=== PATIENT | female | born 1940 | race African-American/Black ===

== ENCOUNTER 2016-05-03 12:50 | Observation (INO) | payer MEDICARE, MEDICAID ==
[~2016-05-03] VITALS: Ht 160 cm; Wt 88.3 kg
[2016-05-03] MEDS ORDERED: hydroCHLOROthiazide 25 MG TAB As Ordered ONE (14:02)
[2016-05-03 14:13] LABS: BASO % 0.2 % (0.0-1.0); EOS % 0.8 % (0.0-3.0); LARGE UNSTAINED CELL # 0.2 K/mm3 (0.0-0.4); LARGE UNSTAINED CELL % 3.5 % (0.0-4.0); LYMPH # 1.1 K/mm3 (1.5-4.5); LYMPH % 21.3 % (24.0-44.0); MEAN CORPUSCULAR HEMOGLOBIN 30.2 pg (27.0-33.0); MEAN CORPUSCULAR HGB CONC 34.1 g/dl (32.0-36.5); MEAN CORPUSCULAR VOLUME 88.4 fl (80.0-96.0); MONO # 0.4 K/mm3 (0.0-0.8); NEUTROPHILS # 3.4 K/mm3 (1.8-7.7); NEUTROPHILS % 67.2 % (36.0-66.0); PLATELET COUNT, AUTOMATED 239 k/mm3 (150-450); RED CELL DISTRIBUTION WIDTH 12.4 % (11.5-14.5)
[2016-05-03] MEDS ORDERED: ENALAPRIL MALEATE 5 MG TAB PO ONE (14:30)
[2016-05-03 14:31] LABS: ANION GAP 8 MEQ/L (8-16); BLOOD UREA NITROGEN 9 MG/DL (7-18); CALCIUM LEVEL 9.3 MG/DL (8.8-10.2); CARBON DIOXIDE LEVEL 29 MEQ/L (21-32); CHLORIDE LEVEL 95 MEQ/L (98-107); GLOMERULAR FILTRATION RATE > 60.0 (>39); GLUCOSE, FASTING 116 MG/DL (83-110); POTASSIUM SERUM 4.1 MEQ/L (3.5-5.1); SODIUM LEVEL 132 MEQ/L (136-145)
[2016-05-03] MEDS ORDERED: NITROGLYCERIN 2% OINT 1 GM *U/D* PKT As Ordered ONE (15:03)
--- NOTE | 2016-05-03 15:10 | REP ---
PORTABLE CHEST: No comparisons. AP portable view of the chest is performed. There is cardiomegaly and pulmonary venous hypertension. No acute infiltrate is seen. Mediastinal silhouette appears unremarkable. The visualized osseous structures appear intact. IMPRESSION: Cardiomegaly and pulmonary venous hypertension. No acute infiltrate. Signed by Bijan Peacock MD 05/04/2016 09:47 A
[2016-05-03] MEDS ORDERED: GLUCOSE 4 GM CHEW TABLET PO PRN (16:00)
[2016-05-03] MEDS ORDERED: GLUCAGON FOR INJ 1 MG VIAL (J1610) SC PRN (16:00)
[2016-05-03] MEDS ORDERED: DEXTROSE 50% 50 ML SYRINGE IV PRN (16:00)
[2016-05-03] MEDS ORDERED: GABA300C3 PO (16:05)
[2016-05-03] MEDS ORDERED: GABA600T PO (16:05)
[2016-05-03] MEDS ORDERED: LUBR1DRO OU (16:08)
[2016-05-03] MEDS ORDERED: ASPI1TAB PO (16:08)
[2016-05-03] MEDS ORDERED: JANU100T PO (16:08)
[2016-05-03] MEDS ORDERED: BYST20TA2 PO (16:08)
[2016-05-03] MEDS ORDERED: GLIP5TAB8 PO (16:08)
[2016-05-03] MEDS ORDERED: TERA10CA3 PO (16:08)
[2016-05-03] MEDS ORDERED: VITMTA PO (16:08)
[2016-05-03] MEDS ORDERED: ENAL10TA10 PO (16:08)
--- NOTE | 2016-05-03 16:33 | HPE ---
DATE OF ADMISSION: 05/03/2016 PRIMARY CARE PROVIDER: Dr. Mariza Galloway in [facility], phone number [phone] MEDICAL ASSISTANT INTERNAL MEDICINE: Dr. Christopher, contact information [phone]. HISTORY OF PRESENT ILLNESS: This patient is a 76-year-old female with a past medical history significant for hypertension, non-insulin dependent diabetes, presented to [facility] on 05/03/2016, for 1 week of dizziness and weakness. When patient measured her blood pressure at home, her blood pressure has been consistently high. Patient was seen by seismograph supervisor and primary care provider. Blood pressure medication was fairly controlled previously, however since 6 months ago there are some medication adjustments that she cannot recall the details of and after adjustment patient's blood pressure has been worsening. Patient denies any vision or auditory disturbance, but she complains about severe headache all over her head and the sensation is heavy and the headache usually occurs when she has elevated blood pressures. Patient also feels she can feel her heart pumping but she does not feel her heart is beating fast. Denied any chest pain. Denied any problem with urination. Denied any numbness or tingling. Denied any shortness of breath. When patient arrived in the emergency room, patient had a blood pressure of 241/106, pulse of 50. An EKG was performed and showed some ST depression. Troponin was obtained which showed 0.27. Hospitalist team was called for admission. ALLERGIES: No known drug allergies. HOME MEDICATIONS: - gabapentin - glipizide - enalapril/hydrochlorothiazide - terazosin - aspirin - Bystolic PAST MEDICAL HISTORY: 1. Hypertension. 2. Diabetes. PAST SURGICAL HISTORY: None. SOCIAL HISTORY: Denies smoking. Denies any alcohol use. Denies any recreational drug use. Patient is a FULL CODE. REVIEW OF SYSTEMS: GENERAL: No fever, no chills. HEENT: No vision changes, no auditory changes. CARDIOVASCULAR: Persistent elevated blood pressure started 6 months ago and has been worse in the last week, also accompanied with headache every time when she had an elevated blood pressure. RESPIRATORY: No shortness of breath, no cough. GASTROINTESTINAL (GI): No nausea, no vomiting, no abdominal pain. MUSCULOSKELETAL: No muscle pain or joint pain. OBJECTIVE: VITAL SIGNS: Blood pressure 241/102, pulse 50, respirations 18, temperature 98.1, pulse oximetry 98% in room air. Body weight is 88.63 kg, body height is 160 cm. GENERAL: Fatigued, no sign of acute distress, alert and oriented times three. HEENT: Normocephalic, atraumatic. Extraocular motors grossly intact. CARDIOVASCULAR: Bradycardia with heart rate wandering around 50. Positive S2, S2. LUNGS: Clear to auscultation bilaterally. ABDOMEN: Soft, nontender, nondistended. Bowel sounds present. No rebound, no guarding. EXTREMITIES: No edema, no sign of cyanosis. NEUROLOGIC: Muscle strength 5/5. Sensation to fine touch grossly intact. LABORATORY DATA: WBC 5, hemoglobin 14.1, hematocrit 41.2, platelet count 239. Sodium 132, potassium 4.1, chloride 95, carbon dioxide 29, BUN 9, creatinine 0.8, GFR greater than 60, fasting glucose 116, calcium 9.3, total CK 140, troponin I is 0.27. Chest xray shows cardiomegaly with pulmonary venous hypertension, no acute infiltrate. ASSESSMENT AND PLAN: 1. Hypertensive emergency. Patient was admitted to the progressive care unit (PCU) under observation status. Currently, due to the bradycardia, blood pressure medication regimen is limited. Will increase Enalapril dose and increase the terazosin dose. Continue on hydrochlorothiazide and add hydralazine. Patient's blood pressure will be measured every 4 hours. 2. Elevated troponin with ST depression. We are not sure whether the ST depression is a new finding or not. Patient is from [facility]. We do not have any previous records. Will request records from the patient's primary care provider (PCP) and seismograph supervisor which are Dr. Galloway and Dr. Christopher. I have contacted our seismograph supervisor. He recommends admitting the patient and continue with blood pressure management and follow with repeated EKG and troponin. If there is any continued increase of troponin and there is worsening EKG changes, Dr. Tello will be assisting with transfer. 3. Non-insulin dependent diabetes. Will be on sliding scale and consistent carbohydrate diet. We will also follow with A1c. 4. Deep venous thrombosis (DVT) prophylaxis. Patient will be on heparin.
[2016-05-03] MEDS: HumaLOG INSULIN (NovoLOG) PER UNIT SC SCH ×2 (17:30→21:00)
[2016-05-03 17:56] LABS: CHOLESTEROL LEVEL 117 MG/DL (<200); TRIGLYCERIDES LEVEL 66 MG/DL (<150)
--- NOTE | 2016-05-03 18:20 | ECGEPIP ---
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
[2016-05-03] MEDS ORDERED: HEPARIN SOD (PORCINE) 5000 UNITS/ML VIAL As Ordered ONE (20:42)
[2016-05-03] MEDS ORDERED: GABAPENTIN 100 MG CAP As Ordered ONE (20:42)
[2016-05-03] MEDS: GABAPENTIN 300 MG CAP PO SCH (20:50)
[2016-05-03] MEDS: HEPARIN SOD (PORCINE) 5000 UNITS/ML VIAL SC SCH (20:50)
[2016-05-03] MEDS ORDERED: TERAZOSIN 1 MG CAP PO SCH (21:00)
[2016-05-03] MEDS: **hydrALAZINE HCL** 25 MG TAB PO SCH (22:00)
[2016-05-04] VITALS (9 sets, daily range): BP systolic 139–202; BP diastolic 60–81
[2016-05-04] MEDS ORDERED: **hydrALAZINE HCL** 25 MG TAB As Ordered ONE ×2 (05:56→10:32)
[2016-05-04] MEDS ORDERED: HEPARIN SOD (PORCINE) 5000 UNITS/ML VIAL As Ordered ONE (05:56)
[2016-05-04] MEDS: HEPARIN SOD (PORCINE) 5000 UNITS/ML VIAL SC SCH ×3 (06:02→21:04)
[2016-05-04] MEDS: **hydrALAZINE HCL** 25 MG TAB PO SCH (06:02)
[2016-05-04 08:07] LABS: BASO % 0.3 % (0.0-1.0); EOS # 0.1 K/mm3 (0.0-0.50); EOS % 2.2 % (0.0-3.0); LARGE UNSTAINED CELL # 0.1 K/mm3 (0.0-0.4); LARGE UNSTAINED CELL % 2.3 % (0.0-4.0); LYMPH # 1.4 K/mm3 (1.5-4.5); LYMPH % 25.4 % (24.0-44.0); MEAN CORPUSCULAR HEMOGLOBIN 30.1 pg (27.0-33.0); MEAN CORPUSCULAR HGB CONC 33.4 g/dl (32.0-36.5); MONO # 0.4 K/mm3 (0.0-0.8); MONO % 8.6 % (0.0-5.0); NEUTROPHILS % 61.2 % (36.0-66.0); PLATELET COUNT, AUTOMATED 240 k/mm3 (150-450); RED CELL DISTRIBUTION WIDTH 12.9 % (11.5-14.5); WHITE BLOOD COUNT 4.9 K/mm3 (4.0-10.0)
[2016-05-04] MEDS ORDERED: HumaLOG INSULIN (NovoLOG) PER UNIT As Ordered ONE (08:17)
[2016-05-04] MEDS ORDERED: ENALAPRIL MALEATE 10 MG TAB As Ordered ONE (08:19)
[2016-05-04] MEDS ORDERED: ASPIRIN 81 MG CHEW TABLET As Ordered ONE (08:19)
[2016-05-04] MEDS ORDERED: ACETAMINOPHEN TAB 650MG DOSE (2X325MG) As Ordered ONE (08:20)
[2016-05-04] MEDS ORDERED: hydroCHLOROthiazide 25 MG TAB As Ordered ONE (08:20)
[2016-05-04] MEDS: hydroCHLOROthiazide 25 MG TAB PO SCH ×2 (08:26→18:23)
[2016-05-04] MEDS: ASPIRIN 81 MG CHEW TABLET PO SCH (08:26)
[2016-05-04] MEDS: ENALAPRIL MALEATE 10 MG TAB PO SCH ×2 (08:27→18:23)
[2016-05-04] MEDS: GABAPENTIN 300 MG CAP PO SCH ×2 (08:27→21:03)
[2016-05-04] MEDS: HumaLOG INSULIN (NovoLOG) PER UNIT SC SCH ×4 (08:28→21:04)
[2016-05-04] MEDS: ACETAMINOPHEN TAB 650MG DOSE (2X325MG) PO PRN ×2 (08:29→18:23)
[2016-05-04 08:51] LABS: ALBUMIN 3.6 GM/DL (3.2-5.2); ALBUMIN/GLOBULIN RATIO 0.97 (1.00-1.93); ALKALINE PHOSPHATASE 57 U/L (45-117); ALT/SGPT 21 U/L (12-78); ANION GAP 8 MEQ/L (8-16); AST/SGOT 20 U/L (15-37); BILIRUBIN,TOTAL 0.3 MG/DL (0.2-1.0); BLOOD UREA NITROGEN 13 MG/DL (7-18); CALCIUM LEVEL 9.3 MG/DL (8.8-10.2); CARBON DIOXIDE LEVEL 32 MEQ/L (21-32); CHLORIDE LEVEL 92 MEQ/L (98-107); CREATININE FOR GFR 0.92 MG/DL (0.55-1.02); GLOMERULAR FILTRATION RATE > 60.0 (>39); GLUCOSE, FASTING 149 MG/DL (83-110); MAGNESIUM LEVEL 1.7 MG/DL (1.8-2.4); POTASSIUM SERUM 3.7 MEQ/L (3.5-5.1); SODIUM LEVEL 132 MEQ/L (136-145); TOTAL PROTEIN 7.3 GM/DL (6.4-8.2)
[2016-05-04] MEDS ORDERED: **hydrALAZINE HCL** 25 MG TAB PO ONE (10:30)
[2016-05-04 13:04] LABS: FREE T4 1.3 NG/DL (0.76-1.46)
[2016-05-04 13:31] LABS: CORTISOL BASELINE 19.6 UG/DL (4.3-22.4)
[2016-05-04] MEDS: **hydrALAZINE** 50 MG TAB PO SCH ×2 (14:00→21:04)
--- NOTE | 2016-05-04 15:11 | IPNPDOC ---
Text Note Date of Service The patient was seen on 05/04/16. NOTE Subjective: Patient is a 76 year old female with a PMHx of HTN, NIDDM2, who presented to the ER with complaints o fdizziness an weakness at home. She was found to be 241 /106 with a HR of 50 in the ER. As an outpatient she notes that her BP is typically SBPs of 170-190s. She denied chest pain, but initial EKG showed ST segment depressions and a positive troponin. She was admitted for hypertensive emergency. Patient was seen and examined at the bedside. Currently she denies any symptoms and her BP has been better controlled. Objective: Vitals (See below) General: Lying in bed, no acute distress, comfortable, AAOx3 HEENT: NC, AT, CVS: RRR, +S1S2 Lungs: Fair air entry b/l, -w/r/r Abdomen: Soft, ND, NT, +BSx4 Extremities: +PPx4, -edema, - calf tenderness Neuro: 5/5 muscle strength at upper / lower extremities bilaterally Assessment and plan: 1. Hypertensive emergency - possibly 2/2 non-compliance - Reports that as an outpatient her BP is typically SBPs of 170s-190s - Clinically she has no symptoms at this time - Physical is un-revealing - EKG initially showed ST segment depressions, troponin trend has been stable at 0.28 - Will check for secondary causes of hypertension - Will increase dose of Hydralazine to 50 QID, and Terazosin to 5mg QHS, c/w Enalapril 20 BID and HCTZ 25 BID 2. Elevation in troponin - likely 2/2 demand ischemia - No symptoms; no chest pain, SOB or palpitations - EKG initially showed ST segment depressions - Troponin trend has been stable at 0.28 - Discussed with cardiology - likely 2/2 hypertension - c/w Aspirin 3. NIDDM2 - will c/w ISS while inpatient 4. DVT prophylaxis - c/w heparin VS,Fishbone, I+O VS, Fishbone, I+O Laboratory Tests 05/04/16 07:54 Calcium Level 9.3, Aspartate Amino Transf (AST/SGOT) 20, Alanine Aminotransferase (ALT/SGPT) 21, Total Creatine Kinase 137, Alkaline Phosphatase 57, Total Bilirubin 0.3, Total Protein 7.3, Albumin 3.6, Red Blood Count 4.77, Mean Corpuscular Volume 90.0, Mean Corpuscular Hemoglobin 30.1, Mean Corpuscular Hemoglobin Concent 33.4, Red Cell Distribution Width 12.9, Neutrophils (%) (Auto) 61.2, Lymphocytes (%) (Auto) 25.4, Monocytes (%) (Auto) 8.6 H, Eosinophils (%) (Auto) 2.2, Basophils (%) (Auto) 0.3, Neutrophils # (Auto ) 3.0, Lymphocytes # (Auto) 1.4 L, Monocytes # (Auto) 0.4, Eosinophils # (Auto) 0.1, Basophils # (Auto) 0.0 Vital Signs Date Time Temp Pulse Resp B/P Pulse Ox O2 Delivery O2 Flow Rate FiO2 05/04/16 12:03 97.4 56 18 139/63 95 Room Air SILVA SPEARS MD May 04, 2016 15:11
--- NOTE | 2016-05-04 16:10 | EDDOCDS ---
Physician Documentation [facility] Name: Love Howell Age: 76 yrs Sex: Female : 1940 Arrival Date: 05/03/2016 Time: 12:50 Bed Admit Hold Private MD: Disposition: 05/03/16 15:11 Hospitalization ordered by Shanna Gomez for Inpatient Admission. Preliminary diagnosis are Abnormal electrocardiogram [ECG] [EKG], Abnormal finding of blood chemistry, unspecified - elevated toponin. - Bed requested for PCU. - Status is Inpatient Admission. jjr - Condition is Stable. - Problem is an ongoing problem. - Symptoms are unchanged. Historical: - Allergies: no known allergies; - Home Meds: 1. gabapentin 600 mg Oral tab 1 tab twice a day (Last dose: 05/03/2016 07:00) 2. glipizide 5 mg Oral tab 1 tab once daily (Last dose: 05/03/2016 07:00) 3. enalapril-hydrochlorothiazide 10-25 mg oral tab 1 tab 2 times per day (Last dose: 05/03/2016 07:00) 4. terazosin 1 mg oral cap 1 cap once daily (Last dose: 05/03/2016 07:00) 5. aspirin 81 mg Oral tab 1 tab once daily (Last dose: 05/03/2016 07:00) - PMHx: Hypertension; Diabetes - NIDDM: controlled; - PSHx: none; - Social history: Smoking status: Patient states was never smoker of tobacco. The patient speaks no Urdu. - Family history: Not pertinent. - : The pt / caregiver states he / she is not on anticoagulants. Home medication list is obtained from the caregiver. - Exposure Risk Screening:: None identified. Vital Signs: 05/03 13:08 BP 235 / 101; Pulse 48; Resp 16; Temp 98.3(O); Pulse Ox 98% on R/A; Weight 88.63 kg / ml6 195.4 lbs (M); Height 63 in. (160.02 cm) (R); Pain 0/10; 13:24 BP 241 / 102 (auto/); ml6 13:24 Pulse 50 MON; Resp 18; Temp 98.1; Pulse Ox 98% on R/A; Pain 0/10; ml6 16:39 BP 225 / 92 (auto/); tm5 16:39 Pulse 48 MON; Pulse Ox 97% ; tm5 17:09 BP 202 / 81 (auto/); tm5 17:09 Pulse 48 MON; Pulse Ox 97% ; tm5 17:24 BP 185 / 80 (auto/); tm5 17:24 Pulse 46 MON; Pulse Ox 98% ; tm5 17:39 BP 181 / 80 (auto/); tm5 17:39 Pulse 46 MON; Pulse Ox 97% ; tm5 17:42 BP 199 / 90 (auto/); tm5 17:42 Pulse 44 MON; Pulse Ox 97% ; tm5 17:54 BP 176 / 79 (auto/); tm5 17:54 Pulse 46 MON; Pulse Ox 97% ; tm5 18:09 BP 184 / 81 (auto/); tm5 18:09 Pulse 44 MON; Pulse Ox 98% ; tm5 18:24 BP 213 / 92 (auto/); tm5 18:24 Pulse 52 MON; tm5 18:39 BP 188 / 83 (auto/); tm5 18:39 Pulse 46 MON; Pulse Ox 97% ; tm5 18:54 BP 178 / 63 (auto/); tm5 18:54 Pulse 44 MON; Pulse Ox 96% ; tm5 19:09 BP 183 / 79 (auto/); tm5 19:09 Pulse 48 MON; Resp 16 S; Temp 98.5(O); Pulse Ox 96% on R/A; Pain 0/10; tm5 19:24 BP 178 / 79 (auto/); tm5 19:24 Pulse 50 MON; Pulse Ox 96% ; tm5 19:39 BP 181 / 80 (auto/); tm5 19:39 Pulse 48 MON; Pulse Ox 97% ; tm5 19:54 BP 165 / 67 (auto/); tm5 19:54 Pulse 50 MON; Resp 16 S; Pulse Ox 96% on R/A; Pain 0/10; tm5 20:24 BP 150 / 67 (auto/); tm5 20:24 Pulse 46 MON; Resp 18 S; Pulse Ox 95% on R/A; Pain 0/10; tm5 21:09 BP 162 / 73 (auto/); tm5 21:09 Pulse 48 MON; tm5 21:24 BP 149 / 64 (auto/); tm5 21:24 Pulse 42 MON; tm5 21:39 BP 157 / 73 (auto/); tm5 21:39 Pulse 44 MON; tm5 21:54 BP 142 / 58 (auto/); tm5 21:54 Pulse 44 MON; Resp 18 S; Pulse Ox 98% on R/A; Pain 0/10; tm5 22:09 BP 117 / 57 (auto/); tm5 22:09 Pulse 44 MON; tm5 22:24 BP 117 / 56 (auto/); tm5 22:24 Pulse 46 MON; tm5 22:39 BP 114 / 54 (auto/); tm5 22:39 Pulse 46 MON; tm5 22:54 BP 115 / 57 (auto/); tm5 22:54 Pulse 46 MON; tm5 23:09 BP 117 / 59 (auto/); tm5 23:09 Pulse 44 MON; tm5 23:24 BP 165 / 70 (auto/); tm5 23:24 Pulse 48 MON; tm5 23:39 BP 128 / 60 (auto/); tm5 23:39 Pulse 46 MON; tm5 23:54 BP 120 / 59 (auto/); tm5 23:54 Pulse 44 MON; tm5 02 00:09 BP 121 / 58 (auto/); tm5 00:09 Pulse 44 MON; Resp 18; Pulse Ox 98% on R/A; Pain 0/10; tm5 05/03 13:08 Body Mass Index 34.61 (88.63 kg, 160.02 cm) ml6 MDM: 05/03 13:09 ECG WITH READING ER PHYS+CARDIAG ordered. EDMS 13:35 Financial registration complete. lg 13:38 [facility] Payment Agreement was scanned into [employer] and attached to record. lg 13:46 Moto Mix Operator/Pulse Ox/q 30 min VS ordered. ml6 13:46 Oxygen at 2L/min via NC ordered. ml6 13:46 IV Saline Lock ordered. ml6 13:46 Undress patient appropriately for examination ordered. ml6 13:47 Chest, 1 View Ordered. EDMS 13:47 BMP Ordered. EDMS 13:47 CBC with Diff Ordered. EDMS 13:47 CIP Ordered. EDMS 13:47 Troponin Ordered. EDMS 13:50 Enalapril 5 mg PO once ordered. ke 13:50 Hydrochlorothiazide 25 mg PO once ordered. ke 14:34 BMP Reviewed. ke 14:34 CBC with Diff Reviewed. ke 14:34 Troponin Reviewed. ke 14:44 Nitro-Bid Ointment 2 % 1 inches Transdermal once ordered. ke 14:55 BMP Reviewed. ke 14:55 Troponin Reviewed. ke 14:55 CIP Reviewed. ke 15:50 Admission / Observation Status ordered. EDMS 15:50 2 GRAM SODIUM DIET ordered. EDMS 15:51 CARDIAC MARKER PANEL Ordered. EDMS 16:06 HEMOGLOBIN A1C Ordered. EDMS 16:43 Attending Doctor Change: ordered. EDMS 16:44 Admission / Observation Status ordered. EDMS 17:20 BED REQUEST+ADM ordered. EDMS 17:30 CARDIAC RISK PROFILE Ordered. EDMS 20:47 Fingerstick Blood Sugar Ordered. EDMS 20:53 heparin 5000 units Sub-Q once ordered. tm5 20:53 Gabapentin 600 mg PO once ordered. tm5 20:58 Terazosin 2 mg PO once ordered. tm5 05/04 07:40 CBC WITH DIFFERENTIAL Ordered. EDMS 07:40 COMPLETE COMPHRENSIVE METABOLI Ordered. EDMS 07:40 MAGNESIUM LEVEL Ordered. EDMS 07:40 TROPONIN Ordered. EDMS 07:40 CARDIAC INJURY PROFILE Ordered. EDMS 08:02 Fingerstick Blood Sugar Ordered. EDMS 11:23 ALDOSTERONE/RENIN RATIO Ordered. EDMS 11:23 ALDOSTERONE Ordered. EDMS 11:23 RENIN LEVEL Ordered. EDMS 11:23 CORTISOL BASELINE Ordered. EDMS 11:23 METANEPHRINES PLASMA Ordered. EDMS 11:24 CATECHOLAMINES TOT&FRACT PLASM Ordered. EDMS 11:24 THYROID STIMULATING HORMONE Ordered. EDMS 11:24 FREE T4 Ordered. EDMS 11:24 TOTAL T3 Ordered. EDMS 14:20 ELECTROCARDIOGRAM ADULT ordered. EDMS 14:47 T-Sheet-- Draft Copy was scanned into [employer] and attached to record. gb 14:57 CATECHOLAMINES FRACTION RAN UR Ordered. EDMS 14:57 URINE METANEPHRINES RANDOM Ordered. EDMS 14:57 METANEPHRINES TOTAL & FREE UR Ordered. EDMS Point of Care Testing: Blood Glucose: 05/03 20:39 Blood Glucose: 120 mg/dL; tm5 Ranges: Administered Medications: 13:52 Drug: Hydrochlorothiazide 25 mg [hydrochlorothiazide 25 mg tablet (1 tabs)] Route: PO; ml6 15:26 Drug: Nitro-Bid 1 inches [Nitro-Bid 2 % transdermal ointment (1 inches)] Route: ml6 Transdermal; Site: anterior chest wall; 15:27 Drug: Enalapril 5 mg [enalapril maleate 5 mg tablet (1 tabs)] Route: PO; ml6 20:50 Drug: heparin 5000 units [heparin (porcine) 5,000 unit/mL injection solution (1 mL)] tm5 {Co-Signature: cf2 (Shelly Monrela RN).} Route: Sub-Q; Site: right upper abdomen; 21:55 Follow up: Response: No Adverse Reaction tm5 20:50 Drug: Gabapentin 600 mg [gabapentin 100 mg capsule (6 caps)] Route: PO; tm5 21:55 Follow up: Response: No Adverse Reaction tm5 20:57 CANCELLED (wrong MD orderedd): Terazosin 2 mg PO once tm5 21:00 Drug: Terazosin 2 mg Route: PO; tm5 21:56 Follow up: Response: Blood pressure is improved; No Adverse Reaction tm5 Signatures: Dispatcher [employer] EDBijan Coulter, RN RN dwg Carlita Schneider, Reg Reg gb Mina Almaguer, Reg Reg lg Gerry Reed, ASSISTANT SUPERINTENDENT ASSISTANT SUPERINTENDENT Ava Waggoner, RN RN Venkatesh Lovell RN RN ml6 Suzi FioreRN RN tm5 Shelly Mnoreal RN cf2 The chart was reviewed and I authenticate all verbal orders and agree with the evaluation and treatment provided.Corrections: (The following items were deleted from the chart) 17:30 17:02 CARDIAC RISK PROFILE ordered. EDMS EDMS 20:57 20:57 Terazosin 2 mg PO once ordered. tm5 tm5 05/04 08:45 05/03 15:50 ELECTROCARDIOGRAM ADULT ordered. EDMS EDMS 05/04 14:57 11:23 METANEPHRINES TOTAL & FREE UR ordered. EDMS EDMS 14:57 11:23 URINE METANEPHRINES RANDOM ordered. EDMS EDMS 14:57 11:24 CATECHOLAMINES FRACTION RAN UR ordered. EDMS EDMS Attachments: 05/03 13:38 [facility] Payment Agreement lg 05/04 14:47 T-Sheet-- Draft Copy gb MTDD
--- NOTE | 2016-05-04 16:11 | EDDOCDS ---
Nurse's Notes [facility] Name: Alexis Howell Age: 76 yrs Sex: Female : 1940 Arrival Date: 05/03/2016 Time: 12:50 Bed Admit Hold Private MD: Diagnosis: Abnormal electrocardiogram [ECG] [EKG];Abnormal finding of blood chemistry, unspecified-elevated toponin Presentation: 05/03 12:51 Presenting complaint: Patient states: per Daughter patient has been having dizziness ml6 and fatigue x 1 week. Adult Sepsis Screening: The patient does not have new or worsening altered mentation. Patient's respiratory rate is less than 22. Systolic blood pressure is greater than 100. Patient has a qSOFA score of 0- Negative Sepsis Screen. Suicide/Homicide risk assessment- the patient denies having any suicidal and/or homicidal ideations and does not present with any other emotional, behavioral or mental health complaints. 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 Transition of care: patient was not received from another setting of care. 12:51 Acuity: LIGIA Level 2 ml6 12:51 Method Of Arrival: Ambulance ml6 Triage Assessment: 13:12 General: Appears in no apparent distress, Behavior is appropriate for age, cooperative. ml6 Pain: Denies pain. The patient is triaged at the bedside. See Assessment in Nurses Notes section of ED record. Neurological: No deficits noted. Level of Consciousness is awake, alert, Oriented to person, place, time, In Service Education Teacher are equal bilaterally Moves all extremities. Full function Gait is steady, Speech is normal. Cardiovascular: No deficits noted. Capillary refill < 3 seconds is brisk in bilateral fingers toes Heart tones S1 S2 present Edema is absent. Pulses are all present. Rhythm is sinus bradycardia with multifocal PVCs Chest pain is denied. Respiratory: No deficits noted. Historical: - Allergies: no known allergies; - Home Meds: 1. gabapentin 600 mg Oral tab 1 tab twice a day (Last dose: 05/03/2016 07:00) 2. glipizide 5 mg Oral tab 1 tab once daily (Last dose: 05/03/2016 07:00) 3. enalapril-hydrochlorothiazide 10-25 mg oral tab 1 tab 2 times per day (Last dose: 05/03/2016 07:00) 4. terazosin 1 mg oral cap 1 cap once daily (Last dose: 05/03/2016 07:00) 5. aspirin 81 mg Oral tab 1 tab once daily (Last dose: 05/03/2016 07:00) - PMHx: Hypertension; Diabetes - NIDDM: controlled; - PSHx: none; - Social history: Smoking status: Patient states was never smoker of tobacco. The patient speaks no Romanian. - Family history: Not pertinent. - : The pt / caregiver states he / she is not on anticoagulants. Home medication list is obtained from the caregiver. - Exposure Risk Screening:: None identified. Screenin:14 Screening information is obtained from the patient. Fall risk: No risks identified. ml6 Assistance ADL's: requires no assistance with activities of daily living. Abuse/DV Screen: The patient / caregiver reports he/she is: not in a situation that causes fear, pain or injury. Nutritional screening: No deficits noted. Advance Directives: Currently, there is no health care proxy. home support is adequate. Assessment: 12:51 General: see triage assessment. ml6 19:17 Reassessment: Patient appears in no apparent distress at this time. pt difficult to tm5 assess due to language barrier, pt appears to be in no distress, is watching TV at this time, speaks very little Romanian . Cardiovascular: Rhythm is sinus rhythm No ectopy. 20:32 Reassessment: Patient appears in no apparent distress at this time. Patient denies pain tm5 at this time. pt appears to be in no distress, pt's daughter is interpreting for her, pt denies any complaints at this time & daughter also made pt aware that she will be a azar in the ER department for the night & will be moved eventually to another room for comfort . 21:24 Cardiovascular: Rhythm is sinus bradycardia No ectopy. tm5 Vital Signs: 13:08 BP 235 / 101; Pulse 48; Resp 16; Temp 98.3(O); Pulse Ox 98% on R/A; Weight 88.63 kg ml6 (M); Height 63 in. (160.02 cm) (R); Pain 0/10; 13:24 BP 241 / 102 (auto/); ml6 13:24 Pulse 50 MON; Resp 18; Temp 98.1; Pulse Ox 98% on R/A; Pain 0/10; ml6 16:39 BP 225 / 92 (auto/); tm5 16:39 Pulse 48 MON; Pulse Ox 97% ; tm5 17:09 BP 202 / 81 (auto/); tm5 17:09 Pulse 48 MON; Pulse Ox 97% ; tm5 17:24 BP 185 / 80 (auto/); tm5 17:24 Pulse 46 MON; Pulse Ox 98% ; tm5 17:39 BP 181 / 80 (auto/); tm5 17:39 Pulse 46 MON; Pulse Ox 97% ; tm5 17:42 BP 199 / 90 (auto/); tm5 17:42 Pulse 44 MON; Pulse Ox 97% ; tm5 17:54 BP 176 / 79 (auto/); tm5 17:54 Pulse 46 MON; Pulse Ox 97% ; tm5 18:09 BP 184 / 81 (auto/); tm5 18:09 Pulse 44 MON; Pulse Ox 98% ; tm5 18:24 BP 213 / 92 (auto/); tm5 18:24 Pulse 52 MON; tm5 18:39 BP 188 / 83 (auto/); tm5 18:39 Pulse 46 MON; Pulse Ox 97% ; tm5 18:54 BP 178 / 63 (auto/); tm5 18:54 Pulse 44 MON; Pulse Ox 96% ; tm5 19:09 BP 183 / 79 (auto/); tm5 19:09 Pulse 48 MON; Resp 16 S; Temp 98.5(O); Pulse Ox 96% on R/A; Pain 0/10; tm5 19:24 BP 178 / 79 (auto/); tm5 19:24 Pulse 50 MON; Pulse Ox 96% ; tm5 19:39 BP 181 / 80 (auto/); tm5 19:39 Pulse 48 MON; Pulse Ox 97% ; tm5 19:54 BP 165 / 67 (auto/); tm5 19:54 Pulse 50 MON; Resp 16 S; Pulse Ox 96% on R/A; Pain 0/10; tm5 20:24 BP 150 / 67 (auto/); tm5 20:24 Pulse 46 MON; Resp 18 S; Pulse Ox 95% on R/A; Pain 0/10; tm5 21:09 BP 162 / 73 (auto/); tm5 21:09 Pulse 48 MON; tm5 21:24 BP 149 / 64 (auto/); tm5 21:24 Pulse 42 MON; tm5 21:39 BP 157 / 73 (auto/); tm5 21:39 Pulse 44 MON; tm5 21:54 BP 142 / 58 (auto/); tm5 21:54 Pulse 44 MON; Resp 18 S; Pulse Ox 98% on R/A; Pain 0/10; tm5 22:09 BP 117 / 57 (auto/); tm5 22:09 Pulse 44 MON; tm5 22:24 BP 117 / 56 (auto/); tm5 22:24 Pulse 46 MON; tm5 22:39 BP 114 / 54 (auto/); tm5 22:39 Pulse 46 MON; tm5 22:54 BP 115 / 57 (auto/); tm5 22:54 Pulse 46 MON; tm5 23:09 BP 117 / 59 (auto/); tm5 23:09 Pulse 44 MON; tm5 23:24 BP 165 / 70 (auto/); tm5 23:24 Pulse 48 MON; tm5 23:39 BP 128 / 60 (auto/); tm5 23:39 Pulse 46 MON; tm5 23:54 BP 120 / 59 (auto/); tm5 23:54 Pulse 44 MON; tm5 02 00:09 BP 121 / 58 (auto/); tm5 00:09 Pulse 44 MON; Resp 18; Pulse Ox 98% on R/A; Pain 0/10; tm5 05/03 13:08 Body Mass Index 34.61 (88.63 kg, 160.02 cm) ml6 Vitals: 05/03 13:08 Log In Time N/A - ambulance arrival. ml6 ED Course: 12:51 Patient visited by Danika Wynn, Check Inspector. lbd 12:51 Patient moved to Waiting lbd 12:52 Patient moved to 11 lbd 13:03 Triage Initiated ml6 13:13 The patient / caregiver is instructed regarding the plan of care and ED course. Cardiac ml6 monitor on. Pulse ox on. NIBP on. 13:13 Maintain field IV. Dressing intact. Good blood return noted. Site clean & dry. Gauge & ml6 site: 22g left hand. No procedures done that require assistance. Labs drawn. (by ED staff). Sent per order to lab. 13:14 Patient visited by Venkatesh Nice RN. ml6 13:22 Patient visited by Dagoberto Arboleda. jml1 13:22 EKG done. (by ED staff). Reviewed by Gerry BRAGA. jml1 13:30 Patient name changed from Losena\S\\S\Tj-Dante\S\ to Losena\S\ \S\Tj Howell. EDMS 13:34 Gerry Reed FNP is PHCP. ke 13:34 Patient visited by Gerry Reed FNP. ke 13:34 Patient visited by Gerry Reed FNP. ke 13:38 [facility] Payment Agreement was scanned into Maintenance Assistant and attached to record. lg 13:45 Patient visited by Venkatesh Nice RN. ml6 13:46 Inserted peripheral IV: 18gauge IV in right antecubital area and blood collected. ml6 Patient tolerated the procedure well. Labs drawn. (by ED staff). Sent per order to lab. 14:14 Patient visited by Gerry Reed FNP. ke 14:45 Patient visited by Gerry Reed FNP. ke 15:07 Shanna Gomez auth specialist. ys2 15:10 Shanna Gomez is Hospitalizing Provider. ke 15:48 Chest, 1 View Returned. EDMS 19:00 Patient visited by Suzi Fiore RN. tm5 19:00 Report received from Blayne Raines RN, assumed care of pt at this time. tm5 19:02 EKG-ADULT Returned. EDMS 19:17 Awaiting bed assignment. tm5 19:34 Patient moved to Admit Hold sls1 20:01 Patient visited by Suzi Fiore RN. tm5 20:30 Patient visited by Suzi Fiore RN. tm5 20:39 Patient visited by Suzi Fiore RN. tm5 20:52 Patient visited by Suzi Fiore RN. tm5 22:02 Patient visited by Suzi Fiore RN. tm5 0216 00:07 Patient visited by Suzi Fiore RN. tm5 01:28 Patient moved to 18 tm5 02:11 Patient moved to Admit Hold sls1 06:59 Adarsh Liz MD is Attending Physician. pc 14:47 T-Sheet-- Draft Copy was scanned into Maintenance Assistant and attached to record. gb Administered Medications: 05/03 13:52 Drug: Hydrochlorothiazide 25 mg [hydrochlorothiazide 25 mg tablet (1 tabs)] Route: PO; ml6 15:26 Drug: Nitro-Bid 1 inches [Nitro-Bid 2 % transdermal ointment (1 inches)] Route: ml6 Transdermal; Site: anterior chest wall; 15:27 Drug: Enalapril 5 mg [enalapril maleate 5 mg tablet (1 tabs)] Route: PO; ml6 20:50 Drug: heparin 5000 units [heparin (porcine) 5,000 unit/mL injection solution (1 mL)] tm5 {Co-Signature: cf2 (Shelly Monreal RN).} Route: Sub-Q; Site: right upper abdomen; 21:55 Follow up: Response: No Adverse Reaction tm5 20:50 Drug: Gabapentin 600 mg [gabapentin 100 mg capsule (6 caps)] Route: PO; tm5 21:55 Follow up: Response: No Adverse Reaction tm5 20:57 CANCELLED (wrong MD orderedd): Terazosin 2 mg PO once tm5 21:00 Drug: Terazosin 2 mg Route: PO; tm5 21:56 Follow up: Response: Blood pressure is improved; No Adverse Reaction tm5 Point of Care Testing: Blood Glucose: 20:39 Blood Glucose: 120 mg/dL; tm5 Ranges: Order Results: Lab Order: [facility]; SPEC'M 05/03/16 13:41 Test: GLUCOSE, FASTING; Value: 116; Range: 83-110; Abnormal: Above high normal; Units: MG/DL; Status: F Test: BLOOD UREA NITROGEN; Value: 9; Range: 7-18; Units: MG/DL; Status: F Test: CREATININE FOR GFR; Value: 0.80; Range: 0.55-1.02; Units: MG/DL; Status: F Test: GLOMERULAR FILTRATION RATE; Value: > 60.0; Range: >39; Status: F Test: SODIUM LEVEL; Value: 132; Range: 136-145; Abnormal: Below low normal; Units: MEQ/L; Status: F Test: POTASSIUM SERUM; Value: 4.1; Range: 3.5-5.1; Units: MEQ/L; Status: F Test: CHLORIDE LEVEL; Value: 95; Range: 98-107; Abnormal: Below low normal; Units: MEQ/L; Status: F Test: CARBON DIOXIDE LEVEL; Value: 29; Range: 21-32; Units: MEQ/L; Status: F Test: ANION GAP; Value: 8; Range: 8-16; Units: MEQ/L; Status: F Test: CALCIUM LEVEL; Value: 9.3; Range: 8.8-10.2; Units: MG/DL; Status: F Test Note: ; Units are mL/min/1.73 m2 Chronic Kidney Disease Staging per NKF: Stage I & II GFR >=60 Normal to Mildly Decreased Stage III GFR 30-59 Moderately Decreased Stage IV GFR 15-29 Severely Decreased Stage V GFR <15 Very Little GFR Left ESRD GFR <15 on ASSISTED LIVING DIRECTOR Lab Order: CBC with Diff; SPEC'M 05/03/16 13:41 Test: WHITE BLOOD COUNT; Value: 5.0; Range: 4.0-10.0; Units: K/mm3; Status: F Test: RED BLOOD COUNT; Value: 4.66; Range: 4.00-5.40; Units: M/mm3; Status: F Test: HEMOGLOBIN; Value: 14.1; Range: 12.0-16.0; Units: g/dl; Status: F Test: HEMATOCRIT; Value: 41.2; Range: 36.0-47.0; Units: %; Status: F Test: MEAN CORPUSCULAR VOLUME; Value: 88.4; Range: 80.0-96.0; Units: fl; Status: F Test: MEAN CORPUSCULAR HEMOGLOBIN; Value: 30.2; Range: 27.0-33.0; Units: pg; Status: F Test: MEAN CORPUSCULAR HGB CONC; Value: 34.1; Range: 32.0-36.5; Units: g/dl; Status: F Test: RED CELL DISTRIBUTION WIDTH; Value: 12.4; Range: 11.5-14.5; Units: %; Status: F Test: PLATELET COUNT, AUTOMATED; Value: 239; Range: 150-450; Units: k/mm3; Status: F Test: NEUTROPHILS %; Value: 67.2; Range: 36.0-66.0; Abnormal: Above high normal; Units: %; Status: F Test: LYMPH %; Value: 21.3; Range: 24.0-44.0; Abnormal: Below low normal; Units: %; Status: F Test: MONO %; Value: 7.0; Range: 0.0-5.0; Abnormal: Above high normal; Units: %; Status: F Test: EOS %; Value: 0.8; Range: 0.0-3.0; Units: %; Status: F Test: BASO %; Value: 0.2; Range: 0.0-1.0; Units: %; Status: F Test: LARGE UNSTAINED CELL %; Value: 3.5; Range: 0.0-4.0; Units: %; Status: F Test: NEUTROPHILS #; Value: 3.4; Range: 1.8-7.7; Units: K/mm3; Status: F Test: LYMPH #; Value: 1.1; Range: 1.5-4.5; Abnormal: Below low normal; Units: K/mm3; Status: F Test: MONO #; Value: 0.4; Range: 0.0-0.8; Units: K/mm3; Status: F Test: EOS #; Value: 0.0; Range: 0.0-0.50; Units: K/mm3; Status: F Test: BASO #; Value: 0.0; Range: 0.0-0.2; Units: K/mm3; Status: F Test: LARGE UNSTAINED CELL #; Value: 0.2; Range: 0.0-0.4; Units: K/mm3; Status: F Lab Order: CIP; SPEC'M 05/03/16 13:41 Test: CPK CREATINE PHOSPHOKINASE; Value: 140; Range: 26-192; Units: U/L; Status: F Test: CK-MB VALUE MASS; Value: 2.2; Range: 0.0-3.6; Units: NG/ML; Status: F Test: MB/CK RELATIVE INDEX; Value: 1.57; Range: < OR =4; Status: F Test Note: ; DIAGNOSIS CRITERIA MMB ng/ml Relative Index (RI) NON-AMI < or = 5 N/A PEACOCK ZONE > 5 < or = 4 AMI > 5 > 4 Lab Order: Troponin; SPEC'M 05/03/16 13:41 Test: TROPONIN I; Value: 0.27; Range: < 0.10; Abnormal: Above high normal; Units: NG/ML; Status: F Test Note: ; Troponin I Reference Interval for [employer] LOCI: 99th Percentile= 0.00-0.045 ng/ml Risk Stratification: <= 0.10 ng/ml Decreased Risk for Adverse Clinical Events. 0.10-1.50 ng/ml Increased Risk for Adverse Clinical Events. Evaluation of additional criterion and/or repeat testing in 2-6 hours is suggested to rule out myocardial damage. >= 1.50 ng/ml Indicative of Myocardial Injury. Lab Order: CARDIAC MARKER PANEL; [facility] 05/03/16 20:02 Test: CPK CREATINE PHOSPHOKINASE; Value: 135; Range: 26-192; Units: U/L; Status: F Test: CK-MB VALUE MASS; Value: 2.4; Range: 0.0-3.6; Units: NG/ML; Status: F Test: MB/CK RELATIVE INDEX; Value: 1.77; Range: < OR =4; Status: F Test: TROPONIN I; Value: 0.28; Range: < 0.10; Abnormal: Above high normal; Units: NG/ML; Status: F Test Note: ; DIAGNOSIS CRITERIA MMB ng/ml Relative Index (RI) NON-AMI < or = 5 N/A PEACOCK ZONE > 5 < or = 4 AMI > 5 > 4 Lab Order: HEMOGLOBIN A1C; [facility] 05/03/16 13:41 Test: HEMOGLOBIN A1c; Value: 6.7; Range: 4.5-6.2; Abnormal: Above high normal; Units: %; Status: F Test: ESTIMATED AVERAGE GLUCOSE; Value: 146; Range: 60-110; Abnormal: Above high normal; Units: MG/DL; Status: F Lab Order: CARDIAC RISK PROFILE; [facility] 05/03/16 13:41 Test: TRIGLYCERIDES LEVEL; Value: 66; Range: <150; Units: MG/DL; Status: F Test: CHOLESTEROL LEVEL; Value: 117; Range: <200; Units: MG/DL; Status: F Test: HDL CHOLESTEROL; Value: 43; Range: >40; Units: MG/DL; Status: F Test: LDL CHOLESTEROL; Value: 60.8; Range: <100; Units: MG/DL; Status: F Test: NON-HDL-C; Value: 74; Units: MG/DL; Status: F Test: CHOLESTEROL RISK RATIO; Value: 2.720; Range: <5; Status: F Lab Order: Fingerstick Blood Sugar; SPEC'M 05/03/16 20:37 Test: BEDSIDE GLUCOSE; Value: 120; Range: 83-110; Abnormal: Above high normal; Units: MG/DL; Status: F Lab Order: CBC WITH DIFFERENTIAL; SPEC'M 05/04/16 07:54 Test: WHITE BLOOD COUNT; Value: 4.9; Range: 4.0-10.0; Units: K/mm3; Status: F Test: RED BLOOD COUNT; Value: 4.77; Range: 4.00-5.40; Units: M/mm3; Status: F Test: HEMOGLOBIN; Value: 14.4; Range: 12.0-16.0; Units: g/dl; Status: F Test: HEMATOCRIT; Value: 43.0; Range: 36.0-47.0; Units: %; Status: F Test: MEAN CORPUSCULAR VOLUME; Value: 90.0; Range: 80.0-96.0; Units: fl; Status: F Test: MEAN CORPUSCULAR HEMOGLOBIN; Value: 30.1; Range: 27.0-33.0; Units: pg; Status: F Test: MEAN CORPUSCULAR HGB CONC; Value: 33.4; Range: 32.0-36.5; Units: g/dl; Status: F Test: RED CELL DISTRIBUTION WIDTH; Value: 12.9; Range: 11.5-14.5; Units: %; Status: F Test: PLATELET COUNT, AUTOMATED; Value: 240; Range: 150-450; Units: k/mm3; Status: F Test: NEUTROPHILS %; Value: 61.2; Range: 36.0-66.0; Units: %; Status: F Test: LYMPH %; Value: 25.4; Range: 24.0-44.0; Units: %; Status: F Test: MONO %; Value: 8.6; Range: 0.0-5.0; Abnormal: Above high normal; Units: %; Status: F Test: EOS %; Value: 2.2; Range: 0.0-3.0; Units: %; Status: F Test: BASO %; Value: 0.3; Range: 0.0-1.0; Units: %; Status: F Test: LARGE UNSTAINED CELL %; Value: 2.3; Range: 0.0-4.0; Units: %; Status: F Test: NEUTROPHILS #; Value: 3.0; Range: 1.8-7.7; Units: K/mm3; Status: F Test: LYMPH #; Value: 1.4; Range: 1.5-4.5; Abnormal: Below low normal; Units: K/mm3; Status: F Test: MONO #; Value: 0.4; Range: 0.0-0.8; Units: K/mm3; Status: F Test: EOS #; Value: 0.1; Range: 0.0-0.50; Units: K/mm3; Status: F Test: BASO #; Value: 0.0; Range: 0.0-0.2; Units: K/mm3; Status: F Test: LARGE UNSTAINED CELL #; Value: 0.1; Range: 0.0-0.4; Units: K/mm3; Status: F Lab Order: COMPLETE COMPHRENSIVE METABOLI; SPEC'M 05/04/16 07:54 Test: GLUCOSE, FASTING; Value: 149; Range: 83-110; Abnormal: Above high normal; Units: MG/DL; Status: F Test: BLOOD UREA NITROGEN; Value: 13; Range: 7-18; Units: MG/DL; Status: F Test: CREATININE FOR GFR; Value: 0.92; Range: 0.55-1.02; Units: MG/DL; Status: F Test: GLOMERULAR FILTRATION RATE; Value: > 60.0; Range: >39; Status: F Test: SODIUM LEVEL; Value: 132; Range: 136-145; Abnormal: Below low normal; Units: MEQ/L; Status: F Test: POTASSIUM SERUM; Value: 3.7; Range: 3.5-5.1; Units: MEQ/L; Status: F Test: CHLORIDE LEVEL; Value: 92; Range: 98-107; Abnormal: Below low normal; Units: MEQ/L; Status: F Test: CARBON DIOXIDE LEVEL; Value: 32; Range: 21-32; Units: MEQ/L; Status: F Test: ANION GAP; Value: 8; Range: 8-16; Units: MEQ/L; Status: F Test: CALCIUM LEVEL; Value: 9.3; Range: 8.8-10.2; Units: MG/DL; Status: F Test: AST/SGOT; Value: 20; Range: 15-37; Units: U/L; Status: F Test: ALT/SGPT; Value: 21; Range: 12-78; Units: U/L; Status: F Test: ALKALINE PHOSPHATASE; Value: 57; Range: 45-117; Units: U/L; Status: F Test: BILIRUBIN,TOTAL; Value: 0.3; Range: 0.2-1.0; Units: MG/DL; Status: F Test: TOTAL PROTEIN; Value: 7.3; Range: 6.4-8.2; Units: GM/DL; Status: F Test: ALBUMIN; Value: 3.6; Range: 3.2-5.2; Units: GM/DL; Status: F Test: ALBUMIN/GLOBULIN RATIO; Value: 0.97; Range: 1.00-1.93; Abnormal: Below low normal; Status: F Test Note: ; Units are mL/min/1.73 m2 Chronic Kidney Disease Staging per NKF: Stage I & II GFR >=60 Normal to Mildly Decreased Stage III GFR 30-59 Moderately Decreased Stage IV GFR 15-29 Severely Decreased Stage V GFR <15 Very Little GFR Left ESRD GFR <15 on ASSISTED LIVING DIRECTOR Lab Order: MAGNESIUM LEVEL; SPEC'M 05/04/16 07:54 Test: MAGNESIUM LEVEL; Value: 1.7; Range: 1.8-2.4; Abnormal: Below low normal; Units: MG/DL; Status: F Lab Order: TROPONIN; SPEC'05/04/16 07:54 Test: TROPONIN I; Value: 0.28; Range: < 0.10; Abnormal: Above high normal; Units: NG/ML; Status: F Test Note: ; Troponin I Reference Interval for [employer] LOCI: 99th Percentile= 0.00-0.045 ng/ml Risk Stratification: <= 0.10 ng/ml Decreased Risk for Adverse Clinical Events. 0.10-1.50 ng/ml Increased Risk for Adverse Clinical Events. Evaluation of additional criterion and/or repeat testing in 2-6 hours is suggested to rule out myocardial damage. >= 1.50 ng/ml Indicative of Myocardial Injury. Lab Order: CARDIAC INJURY PROFILE; SPEC'M 16/17 07:54 Test: CPK CREATINE PHOSPHOKINASE; Value: 137; Range: 26-192; Units: U/L; Status: F Test: CK-MB VALUE MASS; Value: 2.7; Range: 0.0-3.6; Units: NG/ML; Status: F Test: MB/CK RELATIVE INDEX; Value: 1.97; Range: < OR =4; Status: F Test Note: ; DIAGNOSIS CRITERIA MMB ng/ml Relative Index (RI) NON-AMI < or = 5 N/A PEACOCK ZONE > 5 < or = 4 AMI > 5 > 4 Lab Order: Fingerstick Blood Sugar; 05/04/16 07:54 Test: BEDSIDE GLUCOSE; Value: 134; Range: 83-110; Abnormal: Above high normal; Units: MG/DL; Status: F Lab Order: CORTISOL BASELINE; [facility]05/04/16 12:04 Test: CORTISOL BASELINE; Value: 19.6; Range: 4.3-22.4; Units: UG/DL; Status: F Lab Order: THYROID STIMULATING HORMONE; 05/04/16 12:04 Test: THYROID STIMULATING HORMONE; Value: 0.431; Range: 0.358-3.740; Units: uIU/ML; Status: F Lab Order: FREE T4; [facility]05/04/16 12:04 Test: FREE T4; Value: 1.30; Range: 0.76-1.46; Units: NG/DL; Status: F Lab Order: TOTAL T3; [facility]05/04/16 12:04 Test: TOTAL T3; Value: 92.1; Range: 60.0-181.0; Units: NG/DL; Status: F Lab Order: Fingerstick Blood Sugar; [facility]05/04/16 12:33 Test: BEDSIDE GLUCOSE; Value: 125; Range: 83-110; Abnormal: Above high normal; Units: MG/DL; Status: F Radiology Order: EKG-ADULT Test: EKG-ADULT REASON FOR EXAMINATION: Chest Pain; Stationary ECG Study; [facility] - ED; ; Test Date: 2016-05-03; Pat Name: ALEXIS HOWELL Department:; Room: -; 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[employer]; : 1940 Requested By: JENNIFER Gutierrez; Order Number: [id number] Reading MD: Adarsh Liz; Measurements; Intervals [place]; Rate: 50 P: 55; UT: 165 QRS: -24; QRSD: 106 T: 158; QT: 442; QTc: 404; Interpretive Statements; SINUS BRADYCARDIA; BORDERLINE LEFT AXIS DEVIATION; ST DEVIATION AND MODERATE T-WAVE ABNORMALITY, CONSIDER ANTEROLATERAL ISCHEMIA; NO PRIORS; Electronically Signed On 05-03-2016 18:20:36 EST by Adarsh Liz; Radiology Order: Chest, 1 View Test: Chest, 1 View REASON FOR EXAMINATION: Chest Pain; PORTABLE CHEST:; ; No comparisons.; ; AP portable view of the chest is performed.; ; There is cardiomegaly and pulmonary venous hypertension. No acute infiltrate is; seen. Mediastinal silhouette appears unremarkable. The visualized osseous; structures appear intact.; ; IMPRESSION:; ; Cardiomegaly and pulmonary venous hypertension. No acute infiltrate.; ; ; Signed by; Bijan Peacock MD 05/04/2016 09:47 A; Outcome: 15:11 Decision to Hospitalize by Provider. ke 20:32 Discharge Assessment: Patient awake, alert and oriented x 3. No cognitive and/or tm5 functional deficits noted. Patient verbalized understanding of disposition instructions. patient administered narcotics - no. The following High Risk Discharge criteria are identified: None. Admitted to Psych accompanied by tech, via wheelchair, with chart. Condition: good Condition: stable. No special radiology studies were completed. Property :Personal belongings accompany Pt. 05/04 16:09 Patient left the ED. jjr Signatures: Dispatcher [employer] EDMS Adarsh Liz MD MD pc Daly, Linda, Check Inspector Unit lbd Carlita Schneider, Reg Reg gb Mina Almaguer, Reg Reg lg Gerry Reed, MEDIA JOB TITLES MEDIA JOB TITLES Ava Waggoner RN RN jjr Lowe, Matthew, RN RN ml6 Radha Rossi RN RN sls1 Dagoberto Arboleda jml1 Shanna Gomez ys2 Suzi Fiore,RN RN tm5 Shelly Monreal RN cf2 Corrections: (The following items were deleted from the chart) 05/03 19:17 19:09 Pulse 48bpm; Monitor; Pulse Ox 96%; tm5 tm5 21:04 20:32 Reassessment: Patient appears in no apparent distress at this time. Patient tm5 denies pain at this time. pt appears to be in no distress. tm5 MTDD
--- NOTE | 2016-05-04 17:38 | ECGEPIP ---
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 Leftward axis with prominent precordial voltage and lateral strain pattern Probable LVH. No significant change from 05/03/16 Electronically Signed On 05-04-2016 17:37:49 EST by Nelson Tello
[2016-05-04] MEDS ORDERED: TERAZOSIN 1 MG CAP PO SCH (21:00)
[2016-05-05] VITALS: BP 136/71
[2016-05-05 04:00] VITALS: BP 143/71
[2016-05-05 05:20] LABS: BASO % 0.3 % (0.0-1.0); EOS # 0.1 K/mm3 (0.0-0.50); EOS % 1.2 % (0.0-3.0); LARGE UNSTAINED CELL # 0.3 K/mm3 (0.0-0.4); LARGE UNSTAINED CELL % 5.5 % (0.0-4.0); LYMPH # 1.5 K/mm3 (1.5-4.5); LYMPH % 30.7 % (24.0-44.0); MEAN CORPUSCULAR HEMOGLOBIN 30.4 pg (27.0-33.0); MEAN CORPUSCULAR HGB CONC 34.3 g/dl (32.0-36.5); MEAN CORPUSCULAR VOLUME 88.4 fl (80.0-96.0); MONO # 0.6 K/mm3 (0.0-0.8); MONO % 11.5 % (0.0-5.0); NEUTROPHILS # 2.5 K/mm3 (1.8-7.7); NEUTROPHILS % 50.7 % (36.0-66.0); PLATELET COUNT, AUTOMATED 227 k/mm3 (150-450); RED CELL DISTRIBUTION WIDTH 12.8 % (11.5-14.5); WHITE BLOOD COUNT 4.8 K/mm3 (4.0-10.0)
[2016-05-05] MEDS: HEPARIN SOD (PORCINE) 5000 UNITS/ML VIAL SC SCH (05:33)
[2016-05-05] MEDS: **hydrALAZINE** 50 MG TAB PO SCH (05:33)
[2016-05-05 05:47] LABS: ALBUMIN 3.4 GM/DL (3.2-5.2); ALBUMIN/GLOBULIN RATIO 0.97 (1.00-1.93); ALKALINE PHOSPHATASE 57 U/L (45-117); ALT/SGPT 23 U/L (12-78); ANION GAP 8 MEQ/L (8-16); AST/SGOT 19 U/L (15-37); BILIRUBIN,TOTAL 0.2 MG/DL (0.2-1.0); BLOOD UREA NITROGEN 20 MG/DL (7-18); CALCIUM LEVEL 8.8 MG/DL (8.8-10.2); CARBON DIOXIDE LEVEL 32 MEQ/L (21-32); CHLORIDE LEVEL 94 MEQ/L (98-107); CREATININE FOR GFR 0.98 MG/DL (0.55-1.02); GLOMERULAR FILTRATION RATE > 60.0 (>39); GLUCOSE, FASTING 120 MG/DL (83-110); MAGNESIUM LEVEL 1.9 MG/DL (1.8-2.4); POTASSIUM SERUM 3.3 MEQ/L (3.5-5.1); SODIUM LEVEL 134 MEQ/L (136-145); TOTAL PROTEIN 6.9 GM/DL (6.4-8.2)
[2016-05-05] MEDS ORDERED: POTASSIUM CHLORIDE 10 MEQ SR TABLET PO ONE (07:30)
[2016-05-05 08:00] VITALS: BP 146/72
[2016-05-05 08:28] VITALS: BP 146/72
[2016-05-05] MEDS: ASPIRIN 81 MG CHEW TABLET PO SCH (08:28)
[2016-05-05] MEDS: ENALAPRIL MALEATE 10 MG TAB PO SCH (08:28)
[2016-05-05] MEDS: hydroCHLOROthiazide 25 MG TAB PO SCH (08:28)
[2016-05-05] MEDS: GABAPENTIN 300 MG CAP PO SCH (08:29)
[2016-05-05] MEDS: HumaLOG INSULIN (NovoLOG) PER UNIT SC SCH (08:29)
[2016-05-05] MEDS ORDERED: HYDR50TA PO (10:11)
[2016-05-05] MEDS ORDERED: HYDR25TAB PO (10:11)
[2016-05-05] MEDS ORDERED: ENAL10TA2 PO (10:11)
[2016-05-05] MEDS ORDERED: TERA1CA PO (10:11)
--- NOTE | 2016-05-05 20:55 | DSES ---
DATE OF ADMISSION: 05/03/2016 DATE OF DISCHARGE: 05/05/2016 ADMITTING PHYSICIAN: Hawa Woodard MD PRIMARY CARE PHYSICIAN: Unknown. REFERRING PHYSICIAN: Unknown. CONSULTING PHYSICIANS: None. CONDITION ON DISCHARGE: Stable. FINAL DIAGNOSIS: Hypertensive emergency. PROCEDURES: None. HISTORY OF PRESENT ILLNESS: Patient is a 76-year-old female with a past medical history of hypertension, vuy-cidibie-zlkiyogov diabetes mellitus type 2, who presented to the emergency room with complaints of dizziness and weakness at home. She was found to have a blood pressure of 241/106 with a heart rate of 50 in the emergency room. As an outpatient she notes that her blood pressure is typically systolics of 170s-190s. On discussion with the patient's friend and daughter, they note that the patient is not compliant with her medication. In the emergency room, she denied any chest pain, but initial EKG showed ST segment depressions and a positive troponin. She was admitted for hypertensive emergency. HOSPITAL COURSE: 1. Hypertensive emergency, possibly secondary to noncompliance. Reported that her outpatient blood pressure is typically systolic blood pressures of 170s-190s, clinically she had no symptoms at that time. Physical was unrevealing. EKG revealed ST segment depressions and troponin has been stable at 0.28. A full workup of her secondary causes of hypertension were ordered and patient's medications were adjusted. She has been put on hydralazine 50 four times a day, terazosin 5 mg nightly, enalapril 20 twice a day, and hydrochlorothiazide 25 twice a day. 2. Elevated troponin, likely secondary to demand ischemia. No symptoms, no chest pain, no shortness of breath or palpitation. EKG initially showed ST segment depression. Repeat EKG revealed left ventricular hypertrophy (LVH). Troponin have been stable at 0.28. Discussed with cardiology and is likely secondary to hypertension. She is continued on aspirin. 3. Ecx-tlagqui-olllkbtrs diabetes mellitus type 2. Initially as an inpatient was put on insulin sliding scale and then upon discharge she was put on her home medicine. 4. Deep venous thrombosis (DVT) prophylaxis. She was put on heparin as an inpatient. DISCHARGE MEDICATIONS: She is being discharged home with the following medication list: - aspirin 81 mg by mouth daily - gabapentin 600 mg by mouth twice a day - glipizide 5 mg by mouth twice a day - multivitamin one tablet by mouth daily - sitagliptin 100 mg by mouth daily New medications which were prescribed include: - enalapril 20 mg by mouth twice a day - hydralazine 50 mg by mouth three times a day - hydrochlorothiazide 25 mg by mouth twice a day - terazosin 5 mg by mouth nightly DISCHARGE INSTRUCTIONS: Patient was advised to followup with her primary care provider and jewelry sales associate within the next 7 days. She has been advised to call to confirm/schedule appointments and remain compliant with treatment plan and medications. She has been advised to return to the emergency room if she experiences any problems. TIME SPENT ON DISCHARGE: 35 minutes.
--- NOTE | 2016-05-06 17:11 | EDDOCDS ---
Physician Documentation [facility] Name: Love Howell Age: 76 yrs Sex: Female : 1940 Arrival Date: 05/03/2016 Time: 12:50 Bed Admit Hold Private MD: Disposition: 05/03/16 15:11 Hospitalization ordered by Shanna Gomez for Inpatient Admission. Preliminary diagnosis are Abnormal electrocardiogram [ECG] [EKG], Abnormal finding of blood chemistry, unspecified - elevated toponin. - Bed requested for PCU. - Status is Inpatient Admission. jjr - Condition is Stable. - Problem is an ongoing problem. - Symptoms are unchanged. Historical: - Allergies: no known allergies; - Home Meds: 1. gabapentin 600 mg Oral tab 1 tab twice a day (Last dose: 05/03/2016 07:00) 2. glipizide 5 mg Oral tab 1 tab once daily (Last dose: 05/03/2016 07:00) 3. enalapril-hydrochlorothiazide 10-25 mg oral tab 1 tab 2 times per day (Last dose: 05/03/2016 07:00) 4. terazosin 1 mg oral cap 1 cap once daily (Last dose: 05/03/2016 07:00) 5. aspirin 81 mg Oral tab 1 tab once daily (Last dose: 05/03/2016 07:00) - PMHx: Hypertension; Diabetes - NIDDM: controlled; - PSHx: none; - Social history: Smoking status: Patient states was never smoker of tobacco. The patient speaks no Italian. - Family history: Not pertinent. - : The pt / caregiver states he / she is not on anticoagulants. Home medication list is obtained from the caregiver. - Exposure Risk Screening:: None identified. Vital Signs: 05/03 13:08 BP 235 / 101; Pulse 48; Resp 16; Temp 98.3(O); Pulse Ox 98% on R/A; Weight 88.63 kg / ml6 195.4 lbs (M); Height 63 in. (160.02 cm) (R); Pain 0/10; 13:24 BP 241 / 102 (auto/); ml6 13:24 Pulse 50 MON; Resp 18; Temp 98.1; Pulse Ox 98% on R/A; Pain 0/10; ml6 16:39 BP 225 / 92 (auto/); tm5 16:39 Pulse 48 MON; Pulse Ox 97% ; tm5 17:09 BP 202 / 81 (auto/); tm5 17:09 Pulse 48 MON; Pulse Ox 97% ; tm5 17:24 BP 185 / 80 (auto/); tm5 17:24 Pulse 46 MON; Pulse Ox 98% ; tm5 17:39 BP 181 / 80 (auto/); tm5 17:39 Pulse 46 MON; Pulse Ox 97% ; tm5 17:42 BP 199 / 90 (auto/); tm5 17:42 Pulse 44 MON; Pulse Ox 97% ; tm5 17:54 BP 176 / 79 (auto/); tm5 17:54 Pulse 46 MON; Pulse Ox 97% ; tm5 18:09 BP 184 / 81 (auto/); tm5 18:09 Pulse 44 MON; Pulse Ox 98% ; tm5 18:24 BP 213 / 92 (auto/); tm5 18:24 Pulse 52 MON; tm5 18:39 BP 188 / 83 (auto/); tm5 18:39 Pulse 46 MON; Pulse Ox 97% ; tm5 18:54 BP 178 / 63 (auto/); tm5 18:54 Pulse 44 MON; Pulse Ox 96% ; tm5 19:09 BP 183 / 79 (auto/); tm5 19:09 Pulse 48 MON; Resp 16 S; Temp 98.5(O); Pulse Ox 96% on R/A; Pain 0/10; tm5 19:24 BP 178 / 79 (auto/); tm5 19:24 Pulse 50 MON; Pulse Ox 96% ; tm5 19:39 BP 181 / 80 (auto/); tm5 19:39 Pulse 48 MON; Pulse Ox 97% ; tm5 19:54 BP 165 / 67 (auto/); tm5 19:54 Pulse 50 MON; Resp 16 S; Pulse Ox 96% on R/A; Pain 0/10; tm5 20:24 BP 150 / 67 (auto/); tm5 20:24 Pulse 46 MON; Resp 18 S; Pulse Ox 95% on R/A; Pain 0/10; tm5 21:09 BP 162 / 73 (auto/); tm5 21:09 Pulse 48 MON; tm5 21:24 BP 149 / 64 (auto/); tm5 21:24 Pulse 42 MON; tm5 21:39 BP 157 / 73 (auto/); tm5 21:39 Pulse 44 MON; tm5 21:54 BP 142 / 58 (auto/); tm5 21:54 Pulse 44 MON; Resp 18 S; Pulse Ox 98% on R/A; Pain 0/10; tm5 22:09 BP 117 / 57 (auto/); tm5 22:09 Pulse 44 MON; tm5 22:24 BP 117 / 56 (auto/); tm5 22:24 Pulse 46 MON; tm5 22:39 BP 114 / 54 (auto/); tm5 22:39 Pulse 46 MON; tm5 22:54 BP 115 / 57 (auto/); tm5 22:54 Pulse 46 MON; tm5 23:09 BP 117 / 59 (auto/); tm5 23:09 Pulse 44 MON; tm5 23:24 BP 165 / 70 (auto/); tm5 23:24 Pulse 48 MON; tm5 23:39 BP 128 / 60 (auto/); tm5 23:39 Pulse 46 MON; tm5 23:54 BP 120 / 59 (auto/); tm5 23:54 Pulse 44 MON; tm5 02 00:09 BP 121 / 58 (auto/); tm5 00:09 Pulse 44 MON; Resp 18; Pulse Ox 98% on R/A; Pain 0/10; tm5 05/03 13:08 Body Mass Index 34.61 (88.63 kg, 160.02 cm) ml6 MDM: 05/03 13:09 ECG WITH READING ER PHYS+CARDIAG ordered. EDMS 13:35 Financial registration complete. lg 13:38 [facility] [place] was scanned into [employer] and attached to record. lg 13:46 Concrete Vault Maker/Pulse Ox/q 30 min VS ordered. ml6 13:46 Oxygen at 2L/min via NC ordered. ml6 13:46 IV Saline Lock ordered. ml6 13:46 Undress patient appropriately for examination ordered. ml6 13:47 Chest, 1 View Ordered. EDMS 13:47 BMP Ordered. EDMS 13:47 CBC with Diff Ordered. EDMS 13:47 CIP Ordered. EDMS 13:47 Troponin Ordered. EDMS 13:50 Enalapril 5 mg PO once ordered. ke 13:50 Hydrochlorothiazide 25 mg PO once ordered. ke 14:34 BMP Reviewed. ke 14:34 CBC with Diff Reviewed. ke 14:34 Troponin Reviewed. ke 14:44 Nitro-Bid Ointment 2 % 1 inches Transdermal once ordered. ke 14:55 BMP Reviewed. ke 14:55 Troponin Reviewed. ke 14:55 CIP Reviewed. ke 15:50 Admission / Observation Status ordered. EDMS 15:50 2 GRAM SODIUM DIET ordered. EDMS 15:51 CARDIAC MARKER PANEL Ordered. EDMS 16:06 HEMOGLOBIN A1C Ordered. EDMS 16:43 Attending Doctor Change: ordered. EDMS 16:44 Admission / Observation Status ordered. EDMS 17:20 BED REQUEST+ADM ordered. EDMS 17:30 CARDIAC RISK PROFILE Ordered. EDMS 20:47 Fingerstick Blood Sugar Ordered. EDMS 20:53 heparin 5000 units Sub-Q once ordered. tm5 20:53 Gabapentin 600 mg PO once ordered. tm5 20:58 Terazosin 2 mg PO once ordered. tm5 05/04 07:40 CBC WITH DIFFERENTIAL Ordered. EDMS 07:40 COMPLETE COMPHRENSIVE METABOLI Ordered. EDMS 07:40 MAGNESIUM LEVEL Ordered. EDMS 07:40 TROPONIN Ordered. EDMS 07:40 CARDIAC INJURY PROFILE Ordered. EDMS 08:02 Fingerstick Blood Sugar Ordered. EDMS 11:23 ALDOSTERONE/RENIN RATIO Ordered. EDMS 11:23 ALDOSTERONE Ordered. EDMS 11:23 RENIN LEVEL Ordered. EDMS 11:23 CORTISOL BASELINE Ordered. EDMS 11:23 METANEPHRINES PLASMA Ordered. EDMS 11:24 CATECHOLAMINES TOT&FRACT PLASM Ordered. EDMS 11:24 THYROID STIMULATING HORMONE Ordered. EDMS 11:24 FREE T4 Ordered. EDMS 11:24 TOTAL T3 Ordered. EDMS 14:20 ELECTROCARDIOGRAM ADULT ordered. EDMS 14:47 T-Sheet-- Draft Copy was scanned into [employer] and attached to record. 14:57 CATECHOLAMINES FRACTION RAN UR Ordered. EDMS 14:57 URINE METANEPHRINES RANDOM Ordered. EDMS 14:57 METANEPHRINES TOTAL & FREE UR Ordered. EDMS 05/05 13:35 ECG/EKG was scanned into [employer] and attached to record. Point of Care Testing: Blood Glucose: 05/03 20:39 Blood Glucose: 120 mg/dL; tm5 Ranges: Administered Medications: 13:52 Drug: Hydrochlorothiazide 25 mg [hydrochlorothiazide 25 mg tablet (1 tabs)] Route: PO; ml6 15:26 Drug: Nitro-Bid 1 inches [Nitro-Bid 2 % transdermal ointment (1 inches)] Route: ml6 Transdermal; Site: anterior chest wall; 15:27 Drug: Enalapril 5 mg [enalapril maleate 5 mg tablet (1 tabs)] Route: PO; ml6 20:50 Drug: heparin 5000 units [heparin (porcine) 5,000 unit/mL injection solution (1 mL)] tm5 {Co-Signature: cf2 (Shelly Monreal RN).} Route: Sub-Q; Site: right upper abdomen; 21:55 Follow up: Response: No Adverse Reaction tm5 20:50 Drug: Gabapentin 600 mg [gabapentin 100 mg capsule (6 caps)] Route: PO; tm5 21:55 Follow up: Response: No Adverse Reaction tm5 20:57 CANCELLED (wrong MD orderedd): Terazosin 2 mg PO once tm5 21:00 Drug: Terazosin 2 mg Route: PO; tm5 21:56 Follow up: Response: Blood pressure is improved; No Adverse Reaction tm5 Signatures: Dispatcher [employer] EDBijan Coulter, RN RN dwg Carlita Schneider, Reg Reg gb Mina Almaguer, Reg Reg lg Gerry Reed, HOSIERY PAIRER HOSIERY PAIRER Ava Waggoner, RN RN Venkatesh Lovell, RN RN ml6 Suzi Fiore,RN RN tm5 Shelly Monreal RN cf2 The chart was reviewed and I authenticate all verbal orders and agree with the evaluation and treatment provided.Corrections: (The following items were deleted from the chart) 17:30 17:02 CARDIAC RISK PROFILE ordered. EDMS EDMS 20:57 20:57 Terazosin 2 mg PO once ordered. tm5 tm5 05/04 08:45 05/03 15:50 ELECTROCARDIOGRAM ADULT ordered. EDMS EDMS 05/04 14:57 11:23 METANEPHRINES TOTAL & FREE UR ordered. EDMS EDMS 14:57 11:23 URINE METANEPHRINES RANDOM ordered. EDMS EDMS 14:57 11:24 CATECHOLAMINES FRACTION RAN UR ordered. EDMS EDMS Attachments: 05/03 13:38 [facility] [place] lg 05/04 14:47 T-Sheet-- Draft Copy gb 05/05 13:35 ECG/EKG gb Chart Complete MTDD
--- NOTE | 2016-05-06 17:11 | EDDOCDS ---
Physician Documentation [facility] Name: Loev Howell Age: 76 yrs Sex: Female : 1940 Arrival Date: 05/03/2016 Time: 12:50 Bed Admit Hold Private MD: Disposition: 05/03/16 15:11 Hospitalization ordered by Shanna Gomez for Inpatient Admission. Preliminary diagnosis are Abnormal electrocardiogram [ECG] [EKG], Abnormal finding of blood chemistry, unspecified - elevated toponin. - Bed requested for PCU. - Status is Inpatient Admission. jjr - Condition is Stable. - Problem is an ongoing problem. - Symptoms are unchanged. Historical: - Allergies: no known allergies; - Home Meds: 1. gabapentin 600 mg Oral tab 1 tab twice a day (Last dose: 05/03/2016 07:00) 2. glipizide 5 mg Oral tab 1 tab once daily (Last dose: 05/03/2016 07:00) 3. enalapril-hydrochlorothiazide 10-25 mg oral tab 1 tab 2 times per day (Last dose: 05/03/2016 07:00) 4. terazosin 1 mg oral cap 1 cap once daily (Last dose: 05/03/2016 07:00) 5. aspirin 81 mg Oral tab 1 tab once daily (Last dose: 05/03/2016 07:00) - PMHx: Hypertension; Diabetes - NIDDM: controlled; - PSHx: none; - Social history: Smoking status: Patient states was never smoker of tobacco. The patient speaks no Upper Sorbian. - Family history: Not pertinent. - : The pt / caregiver states he / she is not on anticoagulants. Home medication list is obtained from the caregiver. - Exposure Risk Screening:: None identified. Vital Signs: 05/03 13:08 BP 235 / 101; Pulse 48; Resp 16; Temp 98.3(O); Pulse Ox 98% on R/A; Weight 88.63 kg / ml6 195.4 lbs (M); Height 63 in. (160.02 cm) (R); Pain 0/10; 13:24 BP 241 / 102 (auto/); ml6 13:24 Pulse 50 MON; Resp 18; Temp 98.1; Pulse Ox 98% on R/A; Pain 0/10; ml6 16:39 BP 225 / 92 (auto/); tm5 16:39 Pulse 48 MON; Pulse Ox 97% ; tm5 17:09 BP 202 / 81 (auto/); tm5 17:09 Pulse 48 MON; Pulse Ox 97% ; tm5 17:24 BP 185 / 80 (auto/); tm5 17:24 Pulse 46 MON; Pulse Ox 98% ; tm5 17:39 BP 181 / 80 (auto/); tm5 17:39 Pulse 46 MON; Pulse Ox 97% ; tm5 17:42 BP 199 / 90 (auto/); tm5 17:42 Pulse 44 MON; Pulse Ox 97% ; tm5 17:54 BP 176 / 79 (auto/); tm5 17:54 Pulse 46 MON; Pulse Ox 97% ; tm5 18:09 BP 184 / 81 (auto/); tm5 18:09 Pulse 44 MON; Pulse Ox 98% ; tm5 18:24 BP 213 / 92 (auto/); tm5 18:24 Pulse 52 MON; tm5 18:39 BP 188 / 83 (auto/); tm5 18:39 Pulse 46 MON; Pulse Ox 97% ; tm5 18:54 BP 178 / 63 (auto/); tm5 18:54 Pulse 44 MON; Pulse Ox 96% ; tm5 19:09 BP 183 / 79 (auto/); tm5 19:09 Pulse 48 MON; Resp 16 S; Temp 98.5(O); Pulse Ox 96% on R/A; Pain 0/10; tm5 19:24 BP 178 / 79 (auto/); tm5 19:24 Pulse 50 MON; Pulse Ox 96% ; tm5 19:39 BP 181 / 80 (auto/); tm5 19:39 Pulse 48 MON; Pulse Ox 97% ; tm5 19:54 BP 165 / 67 (auto/); tm5 19:54 Pulse 50 MON; Resp 16 S; Pulse Ox 96% on R/A; Pain 0/10; tm5 20:24 BP 150 / 67 (auto/); tm5 20:24 Pulse 46 MON; Resp 18 S; Pulse Ox 95% on R/A; Pain 0/10; tm5 21:09 BP 162 / 73 (auto/); tm5 21:09 Pulse 48 MON; tm5 21:24 BP 149 / 64 (auto/); tm5 21:24 Pulse 42 MON; tm5 21:39 BP 157 / 73 (auto/); tm5 21:39 Pulse 44 MON; tm5 21:54 BP 142 / 58 (auto/); tm5 21:54 Pulse 44 MON; Resp 18 S; Pulse Ox 98% on R/A; Pain 0/10; tm5 22:09 BP 117 / 57 (auto/); tm5 22:09 Pulse 44 MON; tm5 22:24 BP 117 / 56 (auto/); tm5 22:24 Pulse 46 MON; tm5 22:39 BP 114 / 54 (auto/); tm5 22:39 Pulse 46 MON; tm5 22:54 BP 115 / 57 (auto/); tm5 22:54 Pulse 46 MON; tm5 23:09 BP 117 / 59 (auto/); tm5 23:09 Pulse 44 MON; tm5 23:24 BP 165 / 70 (auto/); tm5 23:24 Pulse 48 MON; tm5 23:39 BP 128 / 60 (auto/); tm5 23:39 Pulse 46 MON; tm5 23:54 BP 120 / 59 (auto/); tm5 23:54 Pulse 44 MON; tm5 02 00:09 BP 121 / 58 (auto/); tm5 00:09 Pulse 44 MON; Resp 18; Pulse Ox 98% on R/A; Pain 0/10; tm5 05/03 13:08 Body Mass Index 34.61 (88.63 kg, 160.02 cm) ml6 MDM: 05/03 13:09 ECG WITH READING ER PHYS+CARDIAG ordered. EDMS 13:35 Financial registration complete. lg 13:38 [facility] Payment Agreement was scanned into [employer] and attached to record. lg 13:46 Ccna/Pulse Ox/q 30 min VS ordered. ml6 13:46 Oxygen at 2L/min via NC ordered. ml6 13:46 IV Saline Lock ordered. ml6 13:46 Undress patient appropriately for examination ordered. ml6 13:47 Chest, 1 View Ordered. EDMS 13:47 BMP Ordered. EDMS 13:47 CBC with Diff Ordered. EDMS 13:47 CIP Ordered. EDMS 13:47 Troponin Ordered. EDMS 13:50 Enalapril 5 mg PO once ordered. ke 13:50 Hydrochlorothiazide 25 mg PO once ordered. ke 14:34 BMP Reviewed. ke 14:34 CBC with Diff Reviewed. ke 14:34 Troponin Reviewed. ke 14:44 Nitro-Bid Ointment 2 % 1 inches Transdermal once ordered. ke 14:55 BMP Reviewed. ke 14:55 Troponin Reviewed. ke 14:55 CIP Reviewed. ke 15:50 Admission / Observation Status ordered. EDMS 15:50 2 GRAM SODIUM DIET ordered. EDMS 15:51 CARDIAC MARKER PANEL Ordered. EDMS 16:06 HEMOGLOBIN A1C Ordered. EDMS 16:43 Attending Doctor Change: ordered. EDMS 16:44 Admission / Observation Status ordered. EDMS 17:20 BED REQUEST+ADM ordered. EDMS 17:30 CARDIAC RISK PROFILE Ordered. EDMS 20:47 Fingerstick Blood Sugar Ordered. EDMS 20:53 heparin 5000 units Sub-Q once ordered. tm5 20:53 Gabapentin 600 mg PO once ordered. tm5 20:58 Terazosin 2 mg PO once ordered. tm5 05/04 07:40 CBC WITH DIFFERENTIAL Ordered. EDMS 07:40 COMPLETE COMPHRENSIVE METABOLI Ordered. EDMS 07:40 MAGNESIUM LEVEL Ordered. EDMS 07:40 TROPONIN Ordered. EDMS 07:40 CARDIAC INJURY PROFILE Ordered. EDMS 08:02 Fingerstick Blood Sugar Ordered. EDMS 11:23 ALDOSTERONE/RENIN RATIO Ordered. EDMS 11:23 ALDOSTERONE Ordered. EDMS 11:23 RENIN LEVEL Ordered. EDMS 11:23 CORTISOL BASELINE Ordered. EDMS 11:23 METANEPHRINES PLASMA Ordered. EDMS 11:24 CATECHOLAMINES TOT&FRACT PLASM Ordered. EDMS 11:24 THYROID STIMULATING HORMONE Ordered. EDMS 11:24 FREE T4 Ordered. EDMS 11:24 TOTAL T3 Ordered. EDMS 14:20 ELECTROCARDIOGRAM ADULT ordered. EDMS 14:47 T-Sheet-- Draft Copy was scanned into [employer] and attached to record. 14:57 CATECHOLAMINES FRACTION RAN UR Ordered. EDMS 14:57 URINE METANEPHRINES RANDOM Ordered. EDMS 14:57 METANEPHRINES TOTAL & FREE UR Ordered. EDMS 05/05 13:35 ECG/EKG was scanned into [employer] and attached to record. Point of Care Testing: Blood Glucose: 05/03 20:39 Blood Glucose: 120 mg/dL; tm5 Ranges: Administered Medications: 13:52 Drug: Hydrochlorothiazide 25 mg [hydrochlorothiazide 25 mg tablet (1 tabs)] Route: PO; ml6 15:26 Drug: Nitro-Bid 1 inches [Nitro-Bid 2 % transdermal ointment (1 inches)] Route: ml6 Transdermal; Site: anterior chest wall; 15:27 Drug: Enalapril 5 mg [enalapril maleate 5 mg tablet (1 tabs)] Route: PO; ml6 20:50 Drug: heparin 5000 units [heparin (porcine) 5,000 unit/mL injection solution (1 mL)] tm5 {Co-Signature: cf2 (Shelly Monreal RN).} Route: Sub-Q; Site: right upper abdomen; 21:55 Follow up: Response: No Adverse Reaction tm5 20:50 Drug: Gabapentin 600 mg [gabapentin 100 mg capsule (6 caps)] Route: PO; tm5 21:55 Follow up: Response: No Adverse Reaction tm5 20:57 CANCELLED (wrong MD orderedd): Terazosin 2 mg PO once tm5 21:00 Drug: Terazosin 2 mg Route: PO; tm5 21:56 Follow up: Response: Blood pressure is improved; No Adverse Reaction tm5 Signatures: Dispatcher [employer] EDBijan Coulter, RN RN dwg Carlita Schneider, Reg Reg gb Mina Almaguer, Reg Reg lg Gerry Reed, MACHINE CASTINGS PLASTERER MACHINE CASTINGS PLASTERER Ava Waggoner, RN RN Venkatesh Lovell, RN RN ml6 Suzi Fiore,RN RN tm5 Shelly Monreal RN cf2 The chart was reviewed and I authenticate all verbal orders and agree with the evaluation and treatment provided.Corrections: (The following items were deleted from the chart) 17:30 17:02 CARDIAC RISK PROFILE ordered. EDMS EDMS 20:57 20:57 Terazosin 2 mg PO once ordered. tm5 tm5 05/04 08:45 05/03 15:50 ELECTROCARDIOGRAM ADULT ordered. EDMS EDMS 05/04 14:57 11:23 METANEPHRINES TOTAL & FREE UR ordered. EDMS EDMS 14:57 11:23 URINE METANEPHRINES RANDOM ordered. EDMS EDMS 14:57 11:24 CATECHOLAMINES FRACTION RAN UR ordered. EDMS EDMS Attachments: 05/03 13:38 [facility] [place] Payment Agreement lg 05/04 14:47 T-Sheet-- Draft Copy gb 05/05 13:35 ECG/EKG gb Chart Complete MTDD
--- NOTE | 2016-05-06 17:11 | EDDOCDS ---
Nurse's Notes [facility] Name: Alexis Howell Age: 76 yrs Sex: Female : 1940 Arrival Date: 05/03/2016 Time: 12:50 Bed Admit Hold Private MD: Diagnosis: Abnormal electrocardiogram [ECG] [EKG];Abnormal finding of blood chemistry, unspecified-elevated toponin Presentation: 05/03 12:51 Presenting complaint: Patient states: per Daughter patient has been having dizziness ml6 and fatigue x 1 week. Adult Sepsis Screening: The patient does not have new or worsening altered mentation. Patient's respiratory rate is less than 22. Systolic blood pressure is greater than 100. Patient has a qSOFA score of 0- Negative Sepsis Screen. Suicide/Homicide risk assessment- the patient denies having any suicidal and/or homicidal ideations and does not present with any other emotional, behavioral or mental health complaints. 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 Transition of care: patient was not received from another setting of care. 12:51 Acuity: LIGIA Level 2 ml6 12:51 Method Of Arrival: Ambulance ml6 Triage Assessment: 13:12 General: Appears in no apparent distress, Behavior is appropriate for age, cooperative. ml6 Pain: Denies pain. The patient is triaged at the bedside. See Assessment in Nurses Notes section of ED record. Neurological: No deficits noted. Level of Consciousness is awake, alert, Oriented to person, place, time, Emergency Care Attendant are equal bilaterally Moves all extremities. Full function Gait is steady, Speech is normal. Cardiovascular: No deficits noted. Capillary refill < 3 seconds is brisk in bilateral fingers toes Heart tones S1 S2 present Edema is absent. Pulses are all present. Rhythm is sinus bradycardia with multifocal PVCs Chest pain is denied. Respiratory: No deficits noted. Historical: - Allergies: no known allergies; - Home Meds: 1. gabapentin 600 mg Oral tab 1 tab twice a day (Last dose: 05/03/2016 07:00) 2. glipizide 5 mg Oral tab 1 tab once daily (Last dose: 05/03/2016 07:00) 3. enalapril-hydrochlorothiazide 10-25 mg oral tab 1 tab 2 times per day (Last dose: 05/03/2016 07:00) 4. terazosin 1 mg oral cap 1 cap once daily (Last dose: 05/03/2016 07:00) 5. aspirin 81 mg Oral tab 1 tab once daily (Last dose: 05/03/2016 07:00) - PMHx: Hypertension; Diabetes - NIDDM: controlled; - PSHx: none; - Social history: Smoking status: Patient states was never smoker of tobacco. The patient speaks no Burkinan. - Family history: Not pertinent. - : The pt / caregiver states he / she is not on anticoagulants. Home medication list is obtained from the caregiver. - Exposure Risk Screening:: None identified. Screenin:14 Screening information is obtained from the patient. Fall risk: No risks identified. ml6 Assistance ADL's: requires no assistance with activities of daily living. Abuse/DV Screen: The patient / caregiver reports he/she is: not in a situation that causes fear, pain or injury. Nutritional screening: No deficits noted. Advance Directives: Currently, there is no health care proxy. home support is adequate. Assessment: 12:51 General: see triage assessment. ml6 19:17 Reassessment: Patient appears in no apparent distress at this time. pt difficult to tm5 assess due to language barrier, pt appears to be in no distress, is watching TV at this time, speaks very little Burkinan . Cardiovascular: Rhythm is sinus rhythm No ectopy. 20:32 Reassessment: Patient appears in no apparent distress at this time. Patient denies pain tm5 at this time. pt appears to be in no distress, pt's daughter is interpreting for her, pt denies any complaints at this time & daughter also made pt aware that she will be a azar in the ER department for the night & will be moved eventually to another room for comfort . 21:24 Cardiovascular: Rhythm is sinus bradycardia No ectopy. tm5 Vital Signs: 13:08 BP 235 / 101; Pulse 48; Resp 16; Temp 98.3(O); Pulse Ox 98% on R/A; Weight 88.63 kg ml6 (M); Height 63 in. (160.02 cm) (R); Pain 0/10; 13:24 BP 241 / 102 (auto/); ml6 13:24 Pulse 50 MON; Resp 18; Temp 98.1; Pulse Ox 98% on R/A; Pain 0/10; ml6 16:39 BP 225 / 92 (auto/); tm5 16:39 Pulse 48 MON; Pulse Ox 97% ; tm5 17:09 BP 202 / 81 (auto/); tm5 17:09 Pulse 48 MON; Pulse Ox 97% ; tm5 17:24 BP 185 / 80 (auto/); tm5 17:24 Pulse 46 MON; Pulse Ox 98% ; tm5 17:39 BP 181 / 80 (auto/); tm5 17:39 Pulse 46 MON; Pulse Ox 97% ; tm5 17:42 BP 199 / 90 (auto/); tm5 17:42 Pulse 44 MON; Pulse Ox 97% ; tm5 17:54 BP 176 / 79 (auto/); tm5 17:54 Pulse 46 MON; Pulse Ox 97% ; tm5 18:09 BP 184 / 81 (auto/); tm5 18:09 Pulse 44 MON; Pulse Ox 98% ; tm5 18:24 BP 213 / 92 (auto/); tm5 18:24 Pulse 52 MON; tm5 18:39 BP 188 / 83 (auto/); tm5 18:39 Pulse 46 MON; Pulse Ox 97% ; tm5 18:54 BP 178 / 63 (auto/); tm5 18:54 Pulse 44 MON; Pulse Ox 96% ; tm5 19:09 BP 183 / 79 (auto/); tm5 19:09 Pulse 48 MON; Resp 16 S; Temp 98.5(O); Pulse Ox 96% on R/A; Pain 0/10; tm5 19:24 BP 178 / 79 (auto/); tm5 19:24 Pulse 50 MON; Pulse Ox 96% ; tm5 19:39 BP 181 / 80 (auto/); tm5 19:39 Pulse 48 MON; Pulse Ox 97% ; tm5 19:54 BP 165 / 67 (auto/); tm5 19:54 Pulse 50 MON; Resp 16 S; Pulse Ox 96% on R/A; Pain 0/10; tm5 20:24 BP 150 / 67 (auto/); tm5 20:24 Pulse 46 MON; Resp 18 S; Pulse Ox 95% on R/A; Pain 0/10; tm5 21:09 BP 162 / 73 (auto/); tm5 21:09 Pulse 48 MON; tm5 21:24 BP 149 / 64 (auto/); tm5 21:24 Pulse 42 MON; tm5 21:39 BP 157 / 73 (auto/); tm5 21:39 Pulse 44 MON; tm5 21:54 BP 142 / 58 (auto/); tm5 21:54 Pulse 44 MON; Resp 18 S; Pulse Ox 98% on R/A; Pain 0/10; tm5 22:09 BP 117 / 57 (auto/); tm5 22:09 Pulse 44 MON; tm5 22:24 BP 117 / 56 (auto/); tm5 22:24 Pulse 46 MON; tm5 22:39 BP 114 / 54 (auto/); tm5 22:39 Pulse 46 MON; tm5 22:54 BP 115 / 57 (auto/); tm5 22:54 Pulse 46 MON; tm5 23:09 BP 117 / 59 (auto/); tm5 23:09 Pulse 44 MON; tm5 23:24 BP 165 / 70 (auto/); tm5 23:24 Pulse 48 MON; tm5 23:39 BP 128 / 60 (auto/); tm5 23:39 Pulse 46 MON; tm5 23:54 BP 120 / 59 (auto/); tm5 23:54 Pulse 44 MON; tm5 02 00:09 BP 121 / 58 (auto/); tm5 00:09 Pulse 44 MON; Resp 18; Pulse Ox 98% on R/A; Pain 0/10; tm5 05/03 13:08 Body Mass Index 34.61 (88.63 kg, 160.02 cm) ml6 Vitals: 05/03 13:08 Log In Time N/A - ambulance arrival. ml6 ED Course: 12:51 Patient visited by Danika Wynn, Tobacco Primer Machine Operator. lbd 12:51 Patient moved to Waiting lbd 12:52 Patient moved to 11 lbd 13:03 Triage Initiated ml6 13:13 The patient / caregiver is instructed regarding the plan of care and ED course. Cardiac ml6 monitor on. Pulse ox on. NIBP on. 13:13 Maintain field IV. Dressing intact. Good blood return noted. Site clean & dry. Gauge & ml6 site: 22g left hand. No procedures done that require assistance. Labs drawn. (by ED staff). Sent per order to lab. 13:14 Patient visited by Venkatesh Nice RN. ml6 13:22 Patient visited by Dagoberto Arboleda. jml1 13:22 EKG done. (by ED staff). Reviewed by Gerry BRAGA. jml1 13:30 Patient name changed from Losena\S\\S\Tj-Dante\S\ to Losena\S\ \S\Tj Howell. EDMS 13:34 [facility]. ke 13:34 Patient visited by Gerry Reed FNP. ke 13:34 Patient visited by Gerry Reed FNP. ke 13:38 [facility] Payment Agreement was scanned into [employer] and attached to record. lg 13:45 Patient visited by Venkatesh Nice RN. ml6 13:46 Inserted peripheral IV: 18gauge IV in right antecubital area and blood collected. ml6 Patient tolerated the procedure well. Labs drawn. (by ED staff). Sent per order to lab. 14:14 Patient visited by Gerry Reed FNP. ke 14:45 Patient visited by Gerry Reed FNP. ke 15:07 Shanna Gomez insurance claims specialist. ys2 15:10 Shanna Gomez is Hospitalizing Provider. ke 15:48 Chest, 1 View Returned. EDMS 19:00 Patient visited by Suzi Fiore RN. tm5 19:00 Report received from Blayne Raines RN, assumed care of pt at this time. tm5 19:02 EKG-ADULT Returned. EDMS 19:17 Awaiting bed assignment. tm5 19:34 Patient moved to Admit Hold sls1 20:01 Patient visited by Suiz Fiore RN. tm5 20:30 Patient visited by Suzi Fiore RN. tm5 20:39 Patient visited by Suzi Fiore RN. tm5 20:52 Patient visited by Suzi Fiore RN. tm5 22:02 Patient visited by Suzi Fiore RN. tm5 02 00:07 Patient visited by Suzi Fiore RN. tm5 01:28 Patient moved to 18 tm5 02:11 Patient moved to Admit Hold sls1 06:59 Adarsh Liz MD is Attending Physician. pc 14:47 T-Sheet-- Draft Copy was scanned into [employer] and attached to record. gb 05/05 13:35 ECG/EKG was scanned into [employer] and attached to record. gb Administered Medications: 05/03 13:52 Drug: Hydrochlorothiazide 25 mg [hydrochlorothiazide 25 mg tablet (1 tabs)] Route: PO; ml6 15:26 Drug: Nitro-Bid 1 inches [Nitro-Bid 2 % transdermal ointment (1 inches)] Route: ml6 Transdermal; Site: anterior chest wall; 15:27 Drug: Enalapril 5 mg [enalapril maleate 5 mg tablet (1 tabs)] Route: PO; ml6 20:50 Drug: heparin 5000 units [heparin (porcine) 5,000 unit/mL injection solution (1 mL)] tm5 {Co-Signature: cf2 (Shelly Monreal RN).} Route: Sub-Q; Site: right upper abdomen; 21:55 Follow up: Response: No Adverse Reaction tm5 20:50 Drug: Gabapentin 600 mg [gabapentin 100 mg capsule (6 caps)] Route: PO; tm5 21:55 Follow up: Response: No Adverse Reaction tm5 20:57 CANCELLED (wrong MD orderedd): Terazosin 2 mg PO once tm5 21:00 Drug: Terazosin 2 mg Route: PO; tm5 21:56 Follow up: Response: Blood pressure is improved; No Adverse Reaction tm5 Point of Care Testing: Blood Glucose: 20:39 Blood Glucose: 120 mg/dL; tm5 Ranges: Order Results: Lab Order: NANY; SPEC'M 05/03/16 13:41 Test: GLUCOSE, FASTING; Value: 116; Range: 83-110; Abnormal: Above high normal; Units: MG/DL; Status: F Test: BLOOD UREA NITROGEN; Value: 9; Range: 7-18; Units: MG/DL; Status: F Test: CREATININE FOR GFR; Value: 0.80; Range: 0.55-1.02; Units: MG/DL; Status: F Test: GLOMERULAR FILTRATION RATE; Value: > 60.0; Range: >39; Status: F Test: SODIUM LEVEL; Value: 132; Range: 136-145; Abnormal: Below low normal; Units: MEQ/L; Status: F Test: POTASSIUM SERUM; Value: 4.1; Range: 3.5-5.1; Units: MEQ/L; Status: F Test: CHLORIDE LEVEL; Value: 95; Range: 98-107; Abnormal: Below low normal; Units: MEQ/L; Status: F Test: CARBON DIOXIDE LEVEL; Value: 29; Range: 21-32; Units: MEQ/L; Status: F Test: ANION GAP; Value: 8; Range: 8-16; Units: MEQ/L; Status: F Test: CALCIUM LEVEL; Value: 9.3; Range: 8.8-10.2; Units: MG/DL; Status: F Test Note: ; Units are mL/min/1.73 m2 Chronic Kidney Disease Staging per NKF: Stage I & II GFR >=60 Normal to Mildly Decreased Stage III GFR 30-59 Moderately Decreased Stage IV GFR 15-29 Severely Decreased Stage V GFR <15 Very Little GFR Left ESRD GFR <15 on ARTIFICIAL CHERRY MAKER Lab Order: CBC with Diff; SPEC'M 05/03/16 13:41 Test: WHITE BLOOD COUNT; Value: 5.0; Range: 4.0-10.0; Units: K/mm3; Status: F Test: RED BLOOD COUNT; Value: 4.66; Range: 4.00-5.40; Units: M/mm3; Status: F Test: HEMOGLOBIN; Value: 14.1; Range: 12.0-16.0; Units: g/dl; Status: F Test: HEMATOCRIT; Value: 41.2; Range: 36.0-47.0; Units: %; Status: F Test: MEAN CORPUSCULAR VOLUME; Value: 88.4; Range: 80.0-96.0; Units: fl; Status: F Test: MEAN CORPUSCULAR HEMOGLOBIN; Value: 30.2; Range: 27.0-33.0; Units: pg; Status: F Test: MEAN CORPUSCULAR HGB CONC; Value: 34.1; Range: 32.0-36.5; Units: g/dl; Status: F Test: RED CELL DISTRIBUTION WIDTH; Value: 12.4; Range: 11.5-14.5; Units: %; Status: F Test: PLATELET COUNT, AUTOMATED; Value: 239; Range: 150-450; Units: k/mm3; Status: F Test: NEUTROPHILS %; Value: 67.2; Range: 36.0-66.0; Abnormal: Above high normal; Units: %; Status: F Test: LYMPH %; Value: 21.3; Range: 24.0-44.0; Abnormal: Below low normal; Units: %; Status: F Test: MONO %; Value: 7.0; Range: 0.0-5.0; Abnormal: Above high normal; Units: %; Status: F Test: EOS %; Value: 0.8; Range: 0.0-3.0; Units: %; Status: F Test: BASO %; Value: 0.2; Range: 0.0-1.0; Units: %; Status: F Test: LARGE UNSTAINED CELL %; Value: 3.5; Range: 0.0-4.0; Units: %; Status: F Test: NEUTROPHILS #; Value: 3.4; Range: 1.8-7.7; Units: K/mm3; Status: F Test: LYMPH #; Value: 1.1; Range: 1.5-4.5; Abnormal: Below low normal; Units: K/mm3; Status: F Test: MONO #; Value: 0.4; Range: 0.0-0.8; Units: K/mm3; Status: F Test: EOS #; Value: 0.0; Range: 0.0-0.50; Units: K/mm3; Status: F Test: BASO #; Value: 0.0; Range: 0.0-0.2; Units: K/mm3; Status: F Test: LARGE UNSTAINED CELL #; Value: 0.2; Range: 0.0-0.4; Units: K/mm3; Status: F Lab Order: CIP; SPEC'M 05/03/16 13:41 Test: CPK CREATINE PHOSPHOKINASE; Value: 140; Range: 26-192; Units: U/L; Status: F Test: CK-MB VALUE MASS; Value: 2.2; Range: 0.0-3.6; Units: NG/ML; Status: F Test: MB/CK RELATIVE INDEX; Value: 1.57; Range: < OR =4; Status: F Test Note: ; DIAGNOSIS CRITERIA MMB ng/ml Relative Index (RI) NON-AMI < or = 5 N/A PEACOCK ZONE > 5 < or = 4 AMI > 5 > 4 Lab Order: Troponin; SPEC'M 05/03/16 13:41 Test: TROPONIN I; Value: 0.27; Range: < 0.10; Abnormal: Above high normal; Units: NG/ML; Status: F Test Note: ; Troponin I Reference Interval for Siemens [place] LOCI: 99th Percentile= 0.00-0.045 ng/ml Risk Stratification: <= 0.10 ng/ml Decreased Risk for Adverse Clinical Events. 0.10-1.50 ng/ml Increased Risk for Adverse Clinical Events. Evaluation of additional criterion and/or repeat testing in 2-6 hours is suggested to rule out myocardial damage. >= 1.50 ng/ml Indicative of Myocardial Injury. Lab Order: CARDIAC MARKER PANEL; [facility] 05/03/16 20:02 Test: CPK CREATINE PHOSPHOKINASE; Value: 135; Range: 26-192; Units: U/L; Status: F Test: CK-MB VALUE MASS; Value: 2.4; Range: 0.0-3.6; Units: NG/ML; Status: F Test: MB/CK RELATIVE INDEX; Value: 1.77; Range: < OR =4; Status: F Test: TROPONIN I; Value: 0.28; Range: < 0.10; Abnormal: Above high normal; Units: NG/ML; Status: F Test Note: ; DIAGNOSIS CRITERIA MMB ng/ml Relative Index (RI) NON-AMI < or = 5 N/A [place]OCK [place]ONE > 5 < or = 4 AMI > 5 > 4 Lab Order: HEMOGLOBIN A1C; [facility] 05/03/16 13:41 Test: HEMOGLOBIN A1c; Value: 6.7; Range: 4.5-6.2; Abnormal: Above high normal; Units: %; Status: F Test: ESTIMATED AVERAGE GLUCOSE; Value: 146; Range: 60-110; Abnormal: Above high normal; Units: MG/DL; Status: F Lab Order: CARDIAC RISK PROFILE; [facility] 05/03/16 13:41 Test: TRIGLYCERIDES LEVEL; Value: 66; Range: <150; Units: MG/DL; Status: F Test: CHOLESTEROL LEVEL; Value: 117; Range: <200; Units: MG/DL; Status: F Test: HDL CHOLESTEROL; Value: 43; Range: >40; Units: MG/DL; Status: F Test: LDL CHOLESTEROL; Value: 60.8; Range: <100; Units: MG/DL; Status: F Test: NON-HDL-C; Value: 74; Units: MG/DL; Status: F Test: CHOLESTEROL RISK RATIO; Value: 2.720; Range: <5; Status: F Lab Order: Fingerstick Blood Sugar; [facility] 05/03/16 20:37 Test: BEDSIDE GLUCOSE; Value: 120; Range: 83-110; Abnormal: Above high normal; Units: MG/DL; Status: F Lab Order: CBC WITH DIFFERENTIAL; [facility]05/04[facility] 07:54 Test: WHITE BLOOD COUNT; Value: 4.9; Range: 4.0-10.0; Units: K/mm3; Status: F Test: RED BLOOD COUNT; Value: 4.77; Range: 4.00-5.40; Units: M/mm3; Status: F Test: HEMOGLOBIN; Value: 14.4; Range: 12.0-16.0; Units: g/dl; Status: F Test: HEMATOCRIT; Value: 43.0; Range: 36.0-47.0; Units: %; Status: F Test: MEAN CORPUSCULAR VOLUME; Value: 90.0; Range: 80.0-96.0; Units: fl; Status: F Test: MEAN CORPUSCULAR HEMOGLOBIN; Value: 30.1; Range: 27.0-33.0; Units: pg; Status: F Test: MEAN CORPUSCULAR HGB CONC; Value: 33.4; Range: 32.0-36.5; Units: g/dl; Status: F Test: RED CELL DISTRIBUTION WIDTH; Value: 12.9; Range: 11.5-14.5; Units: %; Status: F Test: PLATELET COUNT, AUTOMATED; Value: 240; Range: 150-450; Units: k/mm3; Status: F Test: NEUTROPHILS %; Value: 61.2; Range: 36.0-66.0; Units: %; Status: F Test: LYMPH %; Value: 25.4; Range: 24.0-44.0; Units: %; Status: F Test: MONO %; Value: 8.6; Range: 0.0-5.0; Abnormal: Above high normal; Units: %; Status: F Test: EOS %; Value: 2.2; Range: 0.0-3.0; Units: %; Status: F Test: BASO %; Value: 0.3; Range: 0.0-1.0; Units: %; Status: F Test: LARGE UNSTAINED CELL %; Value: 2.3; Range: 0.0-4.0; Units: %; Status: F Test: NEUTROPHILS #; Value: 3.0; Range: 1.8-7.7; Units: K/mm3; Status: F Test: LYMPH #; Value: 1.4; Range: 1.5-4.5; Abnormal: Below low normal; Units: K/mm3; Status: F Test: MONO #; Value: 0.4; Range: 0.0-0.8; Units: K/mm3; Status: F Test: EOS #; Value: 0.1; Range: 0.0-0.50; Units: K/mm3; Status: F Test: BASO #; Value: 0.0; Range: 0.0-0.2; Units: K/mm3; Status: F Test: LARGE UNSTAINED CELL #; Value: 0.1; Range: 0.0-0.4; Units: K/mm3; Status: F Lab Order: COMPLETE COMPHRENSIVE METABOLI; SPEC'M 05/04/16 07:54 Test: GLUCOSE, FASTING; Value: 149; Range: 83-110; Abnormal: Above high normal; Units: MG/DL; Status: F Test: BLOOD UREA NITROGEN; Value: 13; Range: 7-18; Units: MG/DL; Status: F Test: CREATININE FOR GFR; Value: 0.92; Range: 0.55-1.02; Units: MG/DL; Status: F Test: GLOMERULAR FILTRATION RATE; Value: > 60.0; Range: >39; Status: F Test: SODIUM LEVEL; Value: 132; Range: 136-145; Abnormal: Below low normal; Units: MEQ/L; Status: F Test: POTASSIUM SERUM; Value: 3.7; Range: 3.5-5.1; Units: MEQ/L; Status: F Test: CHLORIDE LEVEL; Value: 92; Range: 98-107; Abnormal: Below low normal; Units: MEQ/L; Status: F Test: CARBON DIOXIDE LEVEL; Value: 32; Range: 21-32; Units: MEQ/L; Status: F Test: ANION GAP; Value: 8; Range: 8-16; Units: MEQ/L; Status: F Test: CALCIUM LEVEL; Value: 9.3; Range: 8.8-10.2; Units: MG/DL; Status: F Test: AST/SGOT; Value: 20; Range: 15-37; Units: U/L; Status: F Test: ALT/SGPT; Value: 21; Range: 12-78; Units: U/L; Status: F Test: ALKALINE PHOSPHATASE; Value: 57; Range: 45-117; Units: U/L; Status: F Test: BILIRUBIN,TOTAL; Value: 0.3; Range: 0.2-1.0; Units: MG/DL; Status: F Test: TOTAL PROTEIN; Value: 7.3; Range: 6.4-8.2; Units: GM/DL; Status: F Test: ALBUMIN; Value: 3.6; Range: 3.2-5.2; Units: GM/DL; Status: F Test: ALBUMIN/GLOBULIN RATIO; Value: 0.97; Range: 1.00-1.93; Abnormal: Below low normal; Status: F Test Note: ; Units are mL/min/1.73 m2 Chronic Kidney Disease Staging per NKF: Stage I & II GFR >=60 Normal to Mildly Decreased Stage III GFR 30-59 Moderately Decreased Stage IV GFR 15-29 Severely Decreased Stage V GFR <15 Very Little GFR Left ESRD GFR <15 on ARTIFICIAL [facility]ERRY [facility]KER Lab Order: MAGNESIUM LEVEL; SPEC'M 05/04/16 07:54 Test: MAGNESIUM LEVEL; Value: 1.7; Range: 1.8-2.4; Abnormal: Below low normal; Units: MG/DL; Status: F Lab Order: TROPONIN; SPEC'M 05/04/16 07:54 Test: TROPONIN I; Value: 0.28; Range: < 0.10; Abnormal: Above high normal; Units: NG/ML; Status: F Test Note: ; Troponin I Reference Interval for [place] LOCI: 99th Percentile= 0.00-0.045 ng/ml Risk Stratification: <= 0.10 ng/ml Decreased Risk for Adverse Clinical Events. 0.10-1.50 ng/ml Increased Risk for Adverse Clinical Events. Evaluation of additional criterion and/or repeat testing in 2-6 hours is suggested to rule out myocardial damage. >= 1.50 ng/ml Indicative of Myocardial Injury. Lab Order: CARDIAC INJURY PROFILE; 05/04/16 07:54 Test: CPK CREATINE PHOSPHOKINASE; Value: 137; Range: 26-192; Units: U/L; Status: F Test: CK-MB VALUE MASS; Value: 2.7; Range: 0.0-3.6; Units: NG/ML; Status: F Test: MB/CK RELATIVE INDEX; Value: 1.97; Range: < OR =4; Status: F Test Note: ; DIAGNOSIS CRITERIA MMB ng/ml Relative Index (RI) NON-AMI < or = 5 N/A [place]ACOCK ZONE > 5 < or = 4 AMI > 5 > 4 Lab Order: Fingerstick Blood Sugar; 05/04/16 07:54 Test: BEDSIDE GLUCOSE; Value: 134; Range: 83-110; Abnormal: Above high normal; Units: MG/DL; Status: F Lab Order: CORTISOL BASELINE; 05/04/16 12:04 Test: CORTISOL BASELINE; Value: 19.6; Range: 4.3-22.4; Units: UG/DL; Status: F Lab Order: THYROID STIMULATING HORMONE; 05/04/16 12:04 Test: THYROID STIMULATING HORMONE; Value: 0.431; Range: 0.358-3.740; Units: uIU/ML; Status: F Lab Order: FREE T4; 05/04/16 12:04 Test: FREE T4; Value: 1.30; Range: 0.76-1.46; Units: NG/DL; Status: F Lab Order: TOTAL T3; 05/04/16 12:04 Test: TOTAL T3; Value: 92.1; Range: 60.0-181.0; Units: NG/DL; Status: F Lab Order: Fingerstick Blood Sugar; 05/04/16 12:33 Test: BEDSIDE GLUCOSE; Value: 125; Range: 83-110; Abnormal: Above high normal; Units: MG/DL; Status: F Radiology Order: EKG-ADULT Test: EKG-ADULT REASON FOR EXAMINATION: Chest Pain; Stationary ECG Study; [facility] - ED; ; Test Date: 2016-05-03; Pat Name: ALEXIS HOWELL Department:; Room: -; Gender: F Operations And Intelligence Assistant: ALBERT; : 1940 Requested By: JENNIFER Gutierrez; Order Number: [id number] Reading MD: Adarsh Liz; Measurements; Intervals [place]; Rate: 50 P: 55; HI: 165 QRS: -24; QRSD: 106 T: 158; QT: 442; QTc: 404; Interpretive Statements; SINUS BRADYCARDIA; BORDERLINE LEFT AXIS DEVIATION; ST DEVIATION AND MODERATE T-WAVE ABNORMALITY, CONSIDER ANTEROLATERAL ISCHEMIA; NO PRIORS; Electronically Signed On 05-03-2016 18:20:36 EST by Adarsh Liz; Radiology Order: Chest, 1 View Test: Chest, 1 View REASON FOR EXAMINATION: Chest Pain; PORTABLE CHEST:; ; No comparisons.; ; AP portable view of the chest is performed.; ; There is cardiomegaly and pulmonary venous hypertension. No acute infiltrate is; seen. Mediastinal silhouette appears unremarkable. The visualized osseous; structures appear intact.; ; IMPRESSION:; ; Cardiomegaly and pulmonary venous hypertension. No acute infiltrate.; ; ; Signed by; Bijan Peacock MD 05/04/2016 09:47 A; Outcome: 15:11 Decision to Hospitalize by Provider. ke 20:32 Discharge Assessment: Patient awake, alert and oriented x 3. No cognitive and/or tm5 functional deficits noted. Patient verbalized understanding of disposition instructions. patient administered narcotics - no. The following High Risk Discharge criteria are identified: None. Admitted to Psych accompanied by tech, via wheelchair, with chart. Condition: good Condition: stable. No special radiology studies were completed. Property :Personal belongings accompany Pt. 05/04 16:09 Patient left the ED. jjr Signatures: Dispatcher [employer] EDMS Adarsh Liz MD MD pc Daly, Linda, Tobacco Primer Machine Operator Unit lbd Carlita Schneider, Reg Reg gb Mina Almaguer, Reg Reg lg Gerry Reed, INSURANCE INVESTIGATOR INSURANCE INVESTIGATOR ke Ava Patel RN RN Venkatesh Lovell RN RN ml6 Radha Rossi RN RN sls1 Dagoberto Arboleda jml1 Shanna Gomez ys2 Suzi Fiore RN RN tm5 Shelly Monreal RN cf2 Corrections: (The following items were deleted from the chart) 05/03 19:17 19:09 Pulse 48bpm; Monitor; Pulse Ox 96%; tm5 tm5 21:04 20:32 Reassessment: Patient appears in no apparent distress at this time. Patient tm5 denies pain at this time. pt appears to be in no distress. tm5 Chart Complete MTDD
[2016-05-13 14:44] LABS: ALDOSTERONE 7.7 ng/dL (0.0-30.0); DOPAMINE PLASMA 75 pg/mL (0-48); EPINEPHRINE PLASMA 49 pg/mL (0-62); NOREPINEPHRINE PLASMA 746 pg/mL (0-874)
== END 2016-05-05 12:01 | disposition home or self-care (01) ==
LOC: M ED 12:50 → EDBD 12:50 → M ED INP 15:39 → M PCU 05-04 16:04
PROVIDERS: ADMIT Internal Medicine; ATTEND Internal Medicine
DX: I10 Essential (primary) hypertension (principal); E11.9 Type 2 diabetes mellitus without complications; R74.8 Abnormal levels of other serum enzymes; Z79.82 Long term (current) use of aspirin; Z79.899 Other long term (current) drug therapy
CPT/HCPCS: 36415; 71010; 80048; 80053; 80061; 82088; 82383; 82533; 82550; 82553; 83036; 83735; 83835; 84244; 84439; 84443; 84480; 84484; 85025; 87804; 93005; 93041; 96372; 99285; G0378; G0463